=== PATIENT | male | born 1955 | race Caucasian/White ===

== ENCOUNTER 2016-07-09 09:23 | Inpatient (IN) | payer OTHER ==
[~2016-07-09] VITALS: Ht 182.9 cm; Wt 100.0 kg
[2016-07-09] VITALS (8 sets, daily range): BP systolic 110–165; BP diastolic 59–90; PULSE 55–58; RESP 16–20; TEMP 95.2–98.1; O2SAT 96–100
[~2016-07-09 09:23] MED LIST: ALPR0.5T3 PO; DEPA500T3 PO; OXYC15TA PO; QUET100 PO; QUET50TA PO; SUPETAB30 PO
[2016-07-09] MEDS ORDERED: GABA100C4 PO (09:47)
[2016-07-09] MEDS ORDERED: QUET1TAB8 PO ×2 (09:47→10:47)
[2016-07-09] MEDS ORDERED: ATEN25TA PO (09:47)
[2016-07-09] MEDS ORDERED: DEPA500T3 PO (09:47)
[2016-07-09] MEDS ORDERED: VENL37.5 PO (09:47)
[2016-07-09] MEDS ORDERED: PRAZ5CAP PO (09:47)
[2016-07-09] MEDS ORDERED: ONDANSETRON HCL 4 MG/2 ML VIAL IVP ONE (10:00)
[2016-07-09] MEDS ORDERED: MORPHINE SULFATE 8 MG/ML INJ IV PUSH ONE ×2 (10:00→12:15)
[2016-07-09] MEDS ORDERED: SODIUM CHLORIDE 0.9% FLUSH 5 ML FLUSH IVF PRN (10:00)
[2016-07-09 10:36] LABS: AUTOMATED NEUTROPHIL # 4.7 TH/MM3 (1.8-7.7); BASOPHIL % 0.4 % (0.0-2.0); EOSINOPHIL % 0.7 % (0.0-4.0); HEMATOCRIT 38.2 % (39.0-51.0); HEMO FLAGS DIFF FINAL; LYMPH % 24.6 % (9.0-44.0); LYMPHOCYTE # 1.7 TH/MM3 (1.0-4.8); MEAN CELL VOLUME 89.7 FL (80.0-100.0); MEAN CORPUSCULAR HEMOGLOBIN 31.1 PG (27.0-34.0); MEAN CORPUSCULAR HGB CONC 34.7 % (32.0-36.0); MONO % 6.3 % (0.0-8.0); PLATELET COUNT 139 TH/MM3 (150-450); RED BLOOD COUNT 4.25 MIL/MM3 (4.50-5.90); RED CELL DISTRIBUTION WIDTH 14.4 % (11.6-17.2); WHITE BLOOD COUNT 6.9 TH/MM3 (4.0-11.0)
[2016-07-09] MEDS ORDERED: ALPR.5 PO (10:46)
[2016-07-09] MEDS ORDERED: MULTTAB67 PO (10:47)
[2016-07-09 10:58] LABS: BICARBONATE 28.9 MEQ/L (21.0-32.0)
[2016-07-09 10:59] LABS: POTASSIUM 4.6 MEQ/L (3.5-5.1)
--- NOTE | 2016-07-09 11:36 | PD ---
HPI Chief Complaint: Back/ Neck Pain or Injury Time Seen by Provider: 09:30 Travel History International Travel<30 days: No Contact w/Intl Traveler<30days: No Traveled to known affect area: No History of Present Illness HPI Patient 61-year-old male presents with low back pain. Patient states that he was walking in his legs gave way last night he fell impacting the left side of his back and had low back pain. States the neighbor came over and helped him in the bed but this morning he was unable to get up. He then called 911. Denies any saddle anesthesia problems urinating. Denies any hematuria nausea or vomiting or diarrhea. PFSH Past Medical History Arthritis: Yes Asthma: No Autoimmune Disease: No Blood Disorders: No Anxiety: Yes Depression: Yes Heart Rhythm Problems: No Cancer: No Cardiovascular Problems: No High Cholesterol: No Chemotherapy: No Chest Pain: No Congestive Heart Failure: No COPD: Yes Diabetes: No Diminished Hearing: No Endocrine: No GERD: No Genitourinary: No Hepatitis: Yes (HEP C) Hiatal Hernia: No Hypertension: Yes Immune Disorder: No Kidney Stones: No Musculoskeletal: No Neurologic: No Psychiatric: Yes (ptsd) Reproductive: No Respiratory: No Immunizations Current: No Migraines: No Radiation Therapy: No Renal Failure: No Seizures: No Sickle Cell Disease: No Sleep Apnea: No Thyroid Disease: No Ulcer: No Tetanus Vaccination: Unknown Influenza Vaccination: Yes Past Surgical History Abdominal Surgery: No AICD: No Arteriovenous Shunt: No Cardiac Surgery: No Ear Surgery: No Endocrine Surgery: No Eye Surgery: No Genitourinary Surgery: No Gynecologic Surgery: No Insulin Pump: No Joint Replacement: No Oral Surgery: No Pacemaker: No Thoracic Surgery: No Other Surgery: Yes (left ankle) Social History Alcohol Use: No (quit 27 years ago ) Tobacco Use: Yes (1 AND 04/25 PPD) Substance Use: No Allergies-Medications (Allergen,Severity, Reaction): Coded Allergies: No Known Allergies (Verified , 07/09/16) Reported Meds & Prescriptions Reported Meds & Active Scripts Active Reported Quetiapine (Quetiapine Fumarate) 100 Mg Tab 100 Mg PO DAILY Multiple Vitamin 1 Tab 1 Tab PO DAILY Xanax (Alprazolam) 0.5 Mg Tab 0.5 Mg PO QID Prazosin (Prazosin HCl) 5 Mg Cap 5 Mg PO HS Effexor (Venlafaxine HCl) 37.5 Mg Tab 37.5 Mg PO DAILY Depakote ER (Divalproex Sodium) 500 Mg Deacon 1,500 Mg PO HS Atenolol 25 Mg Tab 25 Mg PO BID Gabapentin 100 Mg Cap 100 Mg PO TID Quetiapine (Quetiapine Fumarate) 100 Mg Tab 500 Mg PO HS Review of Systems Except as stated in HPI: all other systems reviewed are Neg Physical Exam Narrative GENERAL: Well-developed well-nourished, appears mildly uncomfortable. SKIN: Warm and dry. No bruising abrasions or lacerations seen on the left flank. HEAD: Atraumatic. Normocephalic. EYES: Pupils equal and round. No scleral icterus. No injection or drainage. ENT: No nasal bleeding or discharge. Mucous membranes pink and moist. NECK: Trachea midline. No JVD. CARDIOVASCULAR: Regular rate and rhythm. No murmur appreciated. RESPIRATORY: No accessory muscle use. Clear to auscultation. Breath sounds equal bilaterally. GASTROINTESTINAL: Abdomen soft, non-tender, nondistended. Hepatic and splenic margins not palpable. MUSCULOSKELETAL: No obvious deformities. No clubbing. No cyanosis. No edema. There is trivial midline tenderness over L1-L2 area. No SI tenderness, pelvis is stable. No C or T-spine tenderness. NEUROLOGICAL: Awake and alert. No obvious cranial nerve deficits. Motor grossly within normal limits. Normal speech. PSYCHIATRIC: Appropriate mood and affect; insight and judgment normal. Data Data Last Documented VS Vital Signs Date Time Temp Pulse Resp B/P Pulse Ox O2 Delivery O2 Flow Rate FiO2 07/09/16 11:30 58 16 136/90 98 Room Air 07/09/16 09:27 98.1 Orders Basic Metabolic Panel (Bmp) (07/09/16 09:56) Complete Blood Count With Diff (07/09/16 09:56) Ct Abd/Pel W Iv Contrast(Rout) (07/09/16 09:56) Iv Access Insert/Monitor (07/09/16 09:56) Ecg Monitoring (07/09/16 09:56) Oximetry (07/09/16 09:56) Ondansetron Inj (Zofran Inj) (07/09/16 10:00) Sodium Chloride 0.9% Flush (Ns Flush) (07/09/16 10:00) Morphine Inj (Morphine Inj) (07/09/16 10:00) Ct Lumb Spine W/O Contrast (07/09/16 ) Iohexol 350 Inj (Omnipaque 350 Inj) (07/09/16 11:44) Consult Neurosurgery (07/09/16 ) Morphine Inj (Morphine Inj) (07/09/16 12:15) Admit Order (Ed Use Only) (07/09/16 ) Labs Laboratory Tests Test 07/09/16 09:30 White Blood Count 6.9 TH/MM3 Red Blood Count 4.25 MIL/MM3 Hemoglobin 13.2 GM/DL Hematocrit 38.2 % Mean Corpuscular Volume 89.7 FL Mean Corpuscular Hemoglobin 31.1 PG Mean Corpuscular Hemoglobin 34.7 % Concent Red Cell Distribution Width 14.4 % Platelet Count 139 TH/MM3 Mean Platelet Volume 8.6 FL Neutrophils (%) (Auto) 68.0 % Lymphocytes (%) (Auto) 24.6 % Monocytes (%) (Auto) 6.3 % Eosinophils (%) (Auto) 0.7 % Basophils (%) (Auto) 0.4 % Neutrophils # (Auto) 4.7 TH/MM3 Lymphocytes # (Auto) 1.7 TH/MM3 Monocytes # (Auto) 0.4 TH/MM3 Eosinophils # (Auto) 0.0 TH/MM3 Basophils # (Auto) 0.0 TH/MM3 CBC Comment DIFF FINAL Differential Comment Sodium Level 140 MEQ/L Potassium Level 4.6 MEQ/L Chloride Level 102 MEQ/L Carbon Dioxide Level 28.9 MEQ/L Anion Gap 9 MEQ/L Blood Urea Nitrogen 18 MG/DL Creatinine 1.13 MG/DL Estimat Glomerular Filtration 66 ML/MIN Rate Random Glucose 84 MG/DL Calcium Level 8.5 MG/DL [facility] Medical Decision Making Medical Screen Exam Complete: Yes Emergency Medical Condition: Yes Differential Diagnosis Fracture, strain, sprain, kidney hematoma less likely. Narrative Course Last 24 hours Impressions Abdomen/Pelvis CT 07/09/16 0956 Signed Impressions: Service Date/Time: Saturday, July 09, 2016 11:15 - CONCLUSION: 1. Nondisplaced acute fracture along the superior endplate of L3. 2. 1.7 cm hepatic cyst. 3. 2.7 cm benign left renal cyst. Jarvis Landry MD Lumbar Spine MRI 07/09/16 0000 Signed Impressions: Service Date/Time: Saturday, July 09, 2016 21:31 - CONCLUSION: 1. Mild compression fracture at L3. No retropulsion of posterior fragments. 2. Minimal broad-based disc bulges at multiple levels as described above. 3. Old mild compression fracture at L1 Thomas Giles MD Lumbar Spine CT 07/09/16 0000 Signed Impressions: Service Date/Time: Saturday, July 09, 2016 11:15 - CONCLUSION: 1. Mild acute compression fracture involving the superior endplate of L3. 2. Old compression fracture superior endplate of L1 3. Mild primary degenerative changes with disc degeneration and disc space narrowing L4-5 and L5-S1 4. Bilateral facet arthritis at multiple levels. Jarvis Landry MD Patient discussed with Dr. Dickinson, for consideration of kyphoplasty in the morning. Patient is agreeable for admission. Diagnosis Primary Impression: Lumbar compression fracture Qualified Code: S32.000A - Lumbar compression fracture, closed, initial encounter Admitting Information Admitting Physician Requests: Admit Condition: Stable Reese Chung MD Jul 09, 2016 11:36
[2016-07-09] MEDS ORDERED: IOHEXOL 350 MG/ML 10 ML VIAL (for RAD DIAG) IV ONE (11:44)
--- NOTE | 2016-07-09 11:55 | RADRPT ---
EXAM DATE/TIME: 07/09/2016 11:15 [facility] COMPARISON: No previous studies available for comparison. INDICATIONS : Trauma; pain after fall. IV CONTRAST: 75 cc Omnipaque 350 (iohexol) IV ORAL CONTRAST: No oral contrast ingested. RADIATION DOSE: 15.97 CTDIvol (mGy) MEDICAL HISTORY : Chronic obstructive pulmonary disease. Hepatitis C. SURGICAL HISTORY : None. ENCOUNTER: Initial ACUITY: 1 day PAIN SCALE: 7/10 LOCATION: Bilateral abdomen. TECHNIQUE: Volumetric scanning of the abdomen and pelvis was performed. Using automated exposure control and ad justment of the mA and/or kV according to patient size, radiation dose was kept as low as reasonably achievable to obtain optimal diagnostic quality images. FINDINGS: LOWER LUNGS: Mild bibasilar atelectasis. LIVER: Homogeneous density. There is a 1.7 cm hepatic cyst in the right lobe by the dome of the diaphragm. There is no dilation of the biliary tree. No calcified gallstones. SPLEEN: Normal size without lesion. PANCREAS: Within normal limits. KIDNEYS: Normal in size and shape. There is no mass, stone or hydronephrosis. 2.7 cm benign left renal cyst a long the upper pole. ADRENAL GLANDS: Within normal limits. VASCULAR: There is no aortic aneurysm. BOWEL/MESENTERY: The stomach, small bowel, and colon demonstrate no acute abnormality. There is no free intraperitone al air or fluid. No inflammatory changes. Stool colon. ABDOMINAL WALL: Within normal limits. RETROPERITONEUM: There is no lymphadenopathy. BLADDER: No wall thickening or mass. REPRODUCTIVE: Within normal limits. INGUINAL: There is no lymphadenopathy or hernia. MUSCULOSKELETAL: There is a nondisplaced acute fracture along the superior endplate of L3. Mild primary degenerative c hanges. Old compression along the superior plate of L1. CONCLUSION: 1. Nondisplaced acute fracture along the superior endplate of L3. 2. 1.7 cm hepatic cyst. 3. 2.7 cm benign left renal cyst. Jarvis Landry MD on July 09, 2016 at 11:43 Board Certified Radiologist. This report was verified electronically.
--- NOTE | 2016-07-09 12:03 | RADRPT ---
EXAM DATE/TIME: 07/09/2016 11:15 [facility] COMPARISON: No previous studies available for comparison. INDICATIONS : Back pain RADIATION DOSE: 15.97 CTDIvol (mGy) MEDICAL HISTORY : COPD SURGICAL HISTORY : none ENCOUNTER: Initial ACUITY: One day PAIN SCALE: 7/10 LOCATION: Low Back/lumbar TECHNIQUE: Volumetric scanning of the lumbar spine was performed. Multiplanar reconstructions in the sagittal, coronal and oblique axial planes were performed. Using automated exposure control and adjustment of the mA and/or kV according to patient size, radiation dose was kept as low as reasonably achievable t o obtain optimal diagnostic quality images. FINDINGS: VERTEBRAE: There is an old compression fracture injury along the superior plate of L1. There is an acute mildly depressed compression fracture along the superior endplate of L3. There are mild degenerative changes of the lumbar spine. There is disc space narrowing L4-5 and L5-S1. ALIGNMENT: No evidence of subluxation. T12-L1: The thecal sac has a normal diameter. No evidence of disc bulge or protrusion. The neural foramina are patent bilaterally. L1-L2: The thecal sac has a normal diameter. No evidence of disc bulge or protrusion. The neural foramina are patent bilaterally. L2-L3: The thecal sac has a normal diameter. No evidence of disc bulge or protrusion. The neural foramina are patent bilaterally. L3-L4: Mild diffuse broad-based bulging. The neural foramina are patent bilaterally. Bilateral facet arthrit is. L4-L5: Mild broad-based left lateral bulging with some narrowing of the left neural foramina. There is bilat eral facet arthritis. L5-S1: Mild broad-based bulging. Bilateral facet arthritis. The neural foramina are patent. CONCLUSION: 1. Mild acute compression fracture involving the superior endplate of L3. 2. Old compression fracture superior endplate of L1 3. Mild primary degenerative changes with disc degeneration and disc space narrowing L4-5 and L5-S1 4. Bilateral facet arthritis at multiple levels. Jarvis Landry MD on July 09, 2016 at 11:56 Board Certified Radiologist. This report was verified electronically.
--- NOTE | 2016-07-09 13:21 | HHI.HP ---
[facility] Admission Diagnosis L3 Compression fracture. Diagnoses: Chief Complaint: back pain, unable to walk. Travel History International Travel<30 Days: No Contact w/Intl Traveler <30 Da: No Traveled to Known Affected Are: No History of Present Illness 61-year-old male with a medical history significant for COPD, hypertension, PTSD , depression, anxiety, and chronic low back and left ankle pain who presented to the emergency room due to inability to ambulate, back pain after he sustained a fall last night. Patient reports he took all of his medications last night including Effexor, Depakote, Seroquel, gabapentin and Xanax. Shortly after went to make a peanut butter sandwich and he had some leg weakness and fell backward onto the wall heating his back. He was unable to get off from the floor. Family helped him to bed and he slept until this morning when he was unable to get out of the bed secondary to significant pain. He denied any loss of consciousness or head trauma. Workup in the emergency room revealed an L3 compression fractures with multilevel degenerative changes. Patient reports he was taken off oxycodone and morphine by the [facility] and was given gabapentin earlier this month. Neurosurgery has been consulted from the emergency department. Review of Systems Constitutional: DENIES: Weight gain, Chills Cardiovascular: DENIES: Chest pain, Palpitations, Syncope Musculoskeletal: COMPLAINS OF: Stiffness, Back pain Except as stated in HPI: all other systems reviewed are Neg Past Family Social History Past Medical History Hypertension COPD PTSD Depression anxiety Chronic low back pain Past Surgical History Left ankle ORIF Cataract surgery Reported Medications Reported Meds & Active Scripts Active Reported Quetiapine (Quetiapine Fumarate) 100 Mg Tab 100 Mg PO DAILY Multiple Vitamin 1 Tab 1 Tab PO DAILY Xanax (Alprazolam) 0.5 Mg Tab 0.5 Mg PO QID Prazosin (Prazosin HCl) 5 Mg Cap 5 Mg PO HS Effexor (Venlafaxine HCl) 37.5 Mg Tab 37.5 Mg PO DAILY Depakote ER (Divalproex Sodium) 500 Mg Deacon 1,500 Mg PO HS Atenolol 25 Mg Tab 25 Mg PO BID Gabapentin 100 Mg Cap 100 Mg PO TID Quetiapine (Quetiapine Fumarate) 100 Mg Tab 500 Mg PO HS Allergies: Coded Allergies: No Known Allergies (Verified , 07/09/16) Family History Father with history of heart disease and CABG Mother from complications of bladder cancer Social History Patient is a lifelong smoker. Smoked as much as 3 packs per day, down to 1 pack per day. He denies current alcohol use. States he hasn't drank for 20+ more years. He denies illicit drug use. Physical Exam Vital Signs Vital Signs Date Time Temp Pulse Resp B/P Pulse Ox O2 Delivery O2 Flow Rate FiO2 07/09/16 10:29 58 16 115/85 96 Room Air 07/09/16 09:27 98.1 58 18 137/90 99 Room Air 07/09/16 09:27 98.1 58 18 137/90 99 Physical Exam GENERAL: Obese male SKIN: No rashes, ecchymoses or lesions. Cool and dry. HEAD: Atraumatic. Normocephalic. No temporal or scalp tenderness. EYES: Pupils equal round and reactive. No injection or drainage. ENT: Nose without drainage. Uvula midline. Airway patent. NECK: Trachea midline. No JVD or lymphadenopathy. Supple, nontender, no meningeal signs. CARDIOVASCULAR: Regular rate and rhythm without murmurs, gallops, or rubs. RESPIRATORY: Clear to auscultation. Breath sounds equal bilaterally. No wheezes , rales, or rhonchi. GASTROINTESTINAL: Abdomen soft, non-tender, nondistended. No guarding. MUSCULOSKELETAL: furnace door tender to palpation all over lumbar area. Pos straight leg on the left. Extremities without edema. No calf tenderness. Negative Homans sign bilaterally. NEUROLOGICAL: Awake and alert. Cranial nerves II through XII intact. Generally weak. No focal neuro deficit. Normal speech. Laboratory Laboratory Tests Test 07/09/16 09:30 White Blood Count 6.9 Red Blood Count 4.25 Hemoglobin 13.2 Hematocrit 38.2 Mean Corpuscular Volume 89.7 Mean Corpuscular Hemoglobin 31.1 Mean Corpuscular Hemoglobin 34.7 Concent Red Cell Distribution Width 14.4 Platelet Count 139 Mean Platelet Volume 8.6 Neutrophils (%) (Auto) 68.0 Lymphocytes (%) (Auto) 24.6 Monocytes (%) (Auto) 6.3 Eosinophils (%) (Auto) 0.7 Basophils (%) (Auto) 0.4 Neutrophils # (Auto) 4.7 Lymphocytes # (Auto) 1.7 Monocytes # (Auto) 0.4 Eosinophils # (Auto) 0.0 Basophils # (Auto) 0.0 CBC Comment DIFF FINAL Differential Comment Sodium Level 140 Potassium Level 4.6 Chloride Level 102 Carbon Dioxide Level 28.9 Anion Gap 9 Blood Urea Nitrogen 18 Creatinine 1.13 Estimat Glomerular Filtration 66 Rate Random Glucose 84 Calcium Level 8.5 Result Diagram: 07/09/1630 07/09/1630 Imaging Last Impressions Abdomen/Pelvis CT 07/09/16 0956 Signed Impressions: Service Date/Time: Saturday, July 09, 2016 11:15 - CONCLUSION: 1. Nondisplaced acute fracture along the superior endplate of L3. 2. 1.7 cm hepatic cyst. 3. 2.7 cm benign left renal cyst. Jarvis Landry MD Lumbar Spine CT 07/09/16 0000 Signed Impressions: Service Date/Time: Saturday, July 09, 2016 11:15 - CONCLUSION: 1. Mild acute compression fracture involving the superior endplate of L3. 2. Old compression fracture superior endplate of L1 3. Mild primary degenerative changes with disc degeneration and disc space narrowing L4-5 and L5-S1 4. Bilateral facet arthritis at multiple levels. Jarvis Landry MD Assessment and Plan Problem List: (1) Lumbar compression fracture ICD Code: S32.000A Status: Acute (2) Polypharmacy ICD Code: Z79.899 Status: Acute (3) Chronic low back pain ICD Code: M54.5 Status: Chronic (4) PTSD (post-traumatic stress disorder) ICD Code: F43.10 Status: Chronic (5) Status post fall ICD Code: Z91.81 Status: Acute (6) Anxiety ICD Code: F41.9 Status: Chronic (7) Depression ICD Code: F32.9 Status: Chronic Assessment and Plan 61-year-old male on multiple sedating medications for PTSD, anxiety, and depression admitted with lumbar compression fracture after a fall. Lumbar compression fracture: CT shows mild acute compression fracture at L3. There is an old fracture at L1 and multilevel degenerative changes. - CT surgery has been consulted. - Pain control. - PT when able Fall likely secondary to polypharmacy: The patient is on high-dose of Seroquel, Effexor, Depakote, gabapentin and Xanax. All of which he took at the same time last night which likely caused his fall. Based on review of the medical records , it appears that he has had problem with polypharmacy in the past. [facility] - Will attempt to wean some of this sedating medications. We'll start with decreasing Seroquel to 100 mg twice a day. Hold Xanax. Advise further titration outpatient. PTSD/depression/anxiety: -Continue patient's Depakote, and decreased Seroquel to 100 mg twice a day -Outpatient f/up with [facility] psychiatrist History of hypertension: Currently normotensive. - He is borderline bradycardic. Will hold atenolol. GI prophylaxis: Stool softener PRN constipation. DVT PPx: SCDs. May need surgery. Discussed Condition With ED physician, Dr. Chung Physician Certification 2 Midnight Certification Type: Admission for Inpatient Services Order for Inpatient Services The services are ordered in accordance with Medicare regulations or non- Medicare payer requirements, as applicable. In the case of services not specified as inpatient-only, they are appropriately provided as inpatient services in accordance with the 2-midnight benchmark. Estimated LOS (days): 3 days is the estimated time the patient will need to remain in the hospital, assuming treatment plan goals are met and no additional complications. Post-Hospital Plan: Not yet determined Edward Rice MD Jul 09, 2016 13:21
[2016-07-09] MEDS ORDERED: NALOXONE HCL 0.4 MG/ML AMP IV PRN (13:30)
[2016-07-09] MEDS ORDERED: SODIUM CHLORIDE 0.9% FLUSH 5 ML FLUSH FLUSH PRN (13:30)
[2016-07-09] MEDS ORDERED: ACETAMINOPHEN 325 MG TAB PO PRN (13:30)
[2016-07-09] MEDS ORDERED: ONDANSETRON HCL 4 MG/2 ML VIAL IVP PRN (13:30)
--- NOTE | 2016-07-09 15:51 | PD.CONS ---
[facility] Service neurosurg Consult Requested By Veronika Chugn Reason for Consult Lumbar fracture Primary Care Physician [facility] History of Present Illness This is a 61-year-old male with history of COPD, hypertension, PTSD, depression , anxiety, and chronic low back and left ankle pain, who presented to the emergency room with inability to ambulate, very severe back pain after a fall last night. Apparently he took all of his medications last night, including Effexor, Depakote, Seroquel, gabapentin and Xanax. Shortly after he attempted to make a peanut butter sandwich and developed leg weakness when his leg gave out, and fell backward onto the wall strickinghis back. He was unable to get off from the floor. Immediate onset of severe back pain. His pain is located in the medial lumbar region. His family helped him to get into bed and he slept until this morning when he was unable to get out of the due to the severe back pain. He denies loss of consciou Physical Exam Vital Signs Vital Signs Date Time Temp Pulse Resp B/P Pulse Ox O2 Delivery O2 Flow Rate FiO2 07/09/16 10:29 58 16 115/85 96 Room Air 07/09/16 09:27 98.1 58 18 137/90 99 Room Air 07/09/16 09:27 98.1 58 18 137/90 99 Physical Exam GENERAL: Obese male SKIN: No rashes, ecchymoses or lesions. Cool and dry. HEAD: Atraumatic. Normocephalic. No temporal or scalp tenderness. EYES: Pupils equal round and reactive. No injection or drainage. ENT: Nose without drainage. Uvula midline. Airway patent. NECK: Trachea midline. No JVD or lymphadenopathy. Supple, nontender, no meningeal signs. CARDIOVASCULAR: Regular rate and rhythm without murmurs, gallops, or rubs. RESPIRATORY: Clear to auscultation. Breath sounds equal bilaterally. No wheezes , rales, or rhonchi. GASTROINTESTINAL: Abdomen soft, non-tender, nondistended. No guarding. MUSCULOSKELETAL: fiber machine tender to palpation all over lumbar area. Pos straight leg on the left. Extremities without edema. No calf tenderness. Negative Homans sign bilaterally. NEUROLOGICAL: Awake and alert. Cranial nerves II through XII intact. Generally weak. No focal neuro deficit. Normal speech. Laboratory Laboratory Tests Test 07/09/16 09:30 White Blood Count 6.9 Red Blood Count 4.25 Hemoglobin 13.2 Hematocrit 38.2 Mean Corpuscular Volume 89.7 Mean Corpuscular Hemoglobin 31.1 Mean Corpuscular Hemoglobin 34.7 Concent Red Cell Distribution Width 14.4 Platelet Count 139 Mean Platelet Volume 8.6 Neutrophils (%) (Auto) 68.0 Lymphocytes (%) (Auto) 24.6 Monocytes (%) (Auto) 6.3 Eosinophils (%) (Auto) 0.7 Basophils (%) (Auto) 0.4 Neutrophils # (Auto) 4.7 Lymphocytes # (Auto) 1.7 Monocytes # (Auto) 0.4 Eosinophils # (Auto) 0.0 Basophils # (Auto) 0.0 CBC Comment DIFF FINAL Differential Comment Sodium Level 140 Potassium Level 4.6 Chloride Level 102 Carbon Dioxide Level 28.9 Anion Gap 9 Blood Urea Nitrogen 18 Creatinine 1.13 Estimat Glomerular Filtration 66 Rate Random Glucose 84 Calcium Level 8.5 Result Diagram: 07/09/16 0930 07/09/16 0930 Imaging Last Impressions Abdomen/Pelvis CT 07/09/16 0956 Signed Impressions: Service Date/Time: Saturday, July 09, 2016 11:15 - CONCLUSION: 1. Nondisplaced acute fracture along the superior endplate of L3. 2. 1.7 cm hepatic cyst. 3. 2.7 cm benign left renal cyst. Jarvis Landry MD Lumbar Spine CT 07/09/16 0000 Signed Impressions: Service Date/Time: Saturday, July 09, 2016 11:15 - CONCLUSION: 1. Mild acute compression fracture involving the superior endplate of L3. 2. Old compression fracture superior endplate of L1 3. Mild primary degenerative changes with disc degeneration and disc space narrowing L4-5 and L5-S1 4. Bilateral facet arthritis at multiple levels. Jarvis Landry MD Assessment and Plan Problem List: (1) Lumbar compression fracture ICD Code: S32.000A Status: Acute (2) Polypharmacy ICD Code: Z79.899 Status: Acute (3) Chronic low back pain ICD Code: M54.5 Status: Chronic (4) PTSD (post-traumatic stress disorder) ICD Code: F43.10 Status: Chronic (5) Status post fall ICD Code: Z91.81 Status: Acute (6) Anxiety ICD Code: F41.9 Status: Chronic (7) Depression ICD Code: F32.9 Status: Chronic Assessment and Plan 61-year-old male on multiple sedating medications for PTSD, anxiety, and depression admitted with lumbar compression fracture after a fall. Lumbar compression fracture: CT shows mild acute compression fracture at L3. There is an old fracture at L1 and multilevel degenerative changes. - CT surgery has been consulted. - Pain control. - PT when able Fall likely secondary to polypharmacy: The patient is on high-dose of Seroquel, Effexor, Depakote, gabapentin and Xanax. All of which he took at the same time last night which likely caused his fall. Based on review of the medical records , it appears that he has had problem with polypharmacy in the past. [facility] - Will attempt to wean some of this sedating medications. We'll start with decreasing Seroquel to 100 mg twice a day. Hold Xanax. Advise further titration outpatient. PTSD/depression/anxiety: -Continue patient's Depakote, and decreased Seroquel to 100 mg twice a day -Outpatient f/up with [place] psychiatrist History of hypertension: Currently normotensive. - He is borderline bradycardic. Will hold atenolol. GI prophylaxis: Stool softener PRN constipation. DVT PPx: SCDs. May need surgery. Past Family Social History Allergies: Coded Allergies: No Known Allergies (Verified , 07/09/16) Past Medical History Hypertension COPD PTSD Depression anxiety Chronic low back pain Past Surgical History Left ankle ORIF Cataract surgery Reported Medications Quetiapine (Quetiapine Fumarate) 100 Mg Tab 100 Mg PO DAILY Multiple Vitamin 1 Tab 1 Tab PO DAILY Xanax (Alprazolam) 0.5 Mg Tab 0.5 Mg PO QID Prazosin (Prazosin HCl) 5 Mg Cap 5 Mg PO HS Effexor (Venlafaxine HCl) 37.5 Mg Tab 37.5 Mg PO DAILY Depakote ER (Divalproex Sodium) 500 Mg Deacon 1,500 Mg PO HS Atenolol 25 Mg Tab 25 Mg PO BID Gabapentin 100 Mg Cap 100 Mg PO TID Quetiapine (Quetiapine Fumarate) 100 Mg Tab 500 Mg PO HS Active Ordered Medications Current Medications Ondansetron HCl (Zofran Inj) 4 mg ONCE ONCE IVP Last administered on 10:26; Start 07/09/16 at 10:00; Stop 07/09/16 at 10:01; Status DC IV Flush (NS Flush) 2 ml UNSCH PRN IVF FLUSH AFTER USING IV ACCESS Last administered on 07/09/16 10:27; Start 07/09/16 at 10:00 Morphine Sulfate (Morphine Inj) 5 mg ONCE ONCE IV PUSH Last administered on 10:27; Start 07/09/16 at 10:00; Stop 07/09/16 at 10:01; Status DC Iohexol (Omnipaque 350 Inj) 75 ml STK-MED ONCE IV ; Start 07/09/16 at 11:44; Stop 07/09/16 at 11:45; Status DC Morphine Sulfate (Morphine Inj) 5 mg ONCE ONCE IV PUSH Last administered on 13:09; Start 07/09/16 at 12:15; Stop 07/09/16 at 12:19; Status DC Alprazolam (Xanax) 0.5 mg QID PO ; Start 07/09/16 at 18:00; Stop 07/09/16 at 18: 00; Status DC Atenolol (Tenormin) 25 mg BID PO ; Start 07/09/16 at 21:00; Stop 07/09/16 at 21: 00; Status DC Divalproex Sodium (Depakote Er) 1,500 mg HS PO Last administered on 07/09/16 20:54; Start 07/09/16 at 21:00 Gabapentin (Neurontin) 100 mg TID PO Last administered on 07/10/16 09:28; Start 07/09/16 at 18:00 Multivitamins (Theragran) 1 tab DAILY PO Last administered on 07/10/16 09:28; Start 07/10/16 at 09:00 Prazosin HCl (Minipress) 5 mg HS PO Last administered on 07/09/16 23:05; Start 07/09/16 at 21:00 Quetiapine Fumarate (SEROquel) 100 mg DAILY PO ; Start 07/10/16 at 09:00; Stop 07/10/16 at 09:00; Status DC Venlafaxine HCl (Effexor Xr) 37.5 mg DAILY PO Last administered on 07/10/16 09 :28; Start 07/10/16 at 09:00 Quetiapine Fumarate (SEROquel) 100 mg BID PO Last administered on 07/10/16 09: 28; Start 07/10/16 at 09:00 IV Flush (NS Flush) 2 ml UNSCH PRN FLUSH FLUSH AFTER USING IV ACCESS; Start at 13:30 IV Flush (NS Flush) 2 ml BID FLUSH Last administered on 07/10/16 09:30; Start 07/09/16 at 21:00 Acetaminophen (Tylenol) 650 mg Q4H PRN PO TEMP > 100.4; Start 07/09/16 at 13:30 Ondansetron HCl (Zofran Inj) 4 mg Q6H PRN IVP NAUSEA OR VOMITING; Start at 13:30 Docusate Sodium (Colace) 100 mg Q12HR PO Last administered on 07/10/16 09:28; Start 07/09/16 at 13:30 Naloxone HCl (Narcan Inj) 0.4 mg UNSCH PRN IV SEE LABEL COMMENTS; Start at 13:30 Oxycodone/ Acetaminophen (Percocet 7.5-325 Mg) 1 tab Q6H PRN PO PAIN GREATER THAN 5 Last administered on 07/10/16 06:20; Start 07/09/16 at 14:30 Influenza Virus Vaccine (Flu (Quadrivalent) Vaccine Inj) 0.5 ml ONCE ONCE IM Last administered on 07/10/16 09:30; Start 07/10/16 at 10:00; Stop 07/10/16 at 10:01 Morphine Sulfate (Morphine Inj) 2 mg ONCE ONCE IV PUSH Last administered on 23:05; Start 07/09/16 at 22:45; Stop 07/09/16 at 22:53; Status DC Family History Father with history of heart disease and CABG Mother from complications of bladder cancer Social History He is a lifelong smoker. Smoked as much as 3 packs per day, down to 1 pack per day. He denies current alcohol use. He denies illicit drug use. Physical Exam Vital Signs Vital Signs Date Time Temp Pulse Resp B/P Pulse Ox O2 Delivery O2 Flow Rate FiO2 07/09/16 14:30 58 18 110/65 100 Room Air 07/09/16 13:30 58 18 137/80 100 Room Air 07/09/16 12:30 56 17 165/59 97 Room Air 07/09/16 11:30 58 16 136/90 98 Room Air 07/09/16 10:29 58 16 115/85 96 Room Air 07/09/16 09:27 98.1 58 18 137/90 99 Room Air 07/09/16 09:27 98.1 58 18 137/90 99 Physical Exam The patient is alert, awake and oriented to time, place and person. Speech is fluent. Higher cognitive functions are normal. Cranial nerve examination demonstrates the pupils to be equal, round, and reactive to light. Extra-ocular movements are intact. Facial motor and sensory function are normal and symmetrical. Gross hearing is intact, bilaterally. The uvula is midline and elevates symmetrically with the soft palate. Sternocleidomastoid and trapezius muscles have normal and symmetrical strength. Other cranial nerves are intact. Neck is soft and supple. Cervical spine has a full range of motion in anterior flexion, extension, lateral bending, and rotation without pain. There is no tenderness to palpation to the spinous processes or paraspinal muscles. Muscle testing reveals normal bulk and tone overall without rigidity, spasticity , fasciculations, or atrophy. Muscle strength is 5/5 in all muscle groups of both upper extremities including deltoid, biceps, triceps, brachioradialis, wrist extension and tassel maker. In the lower extremities, strength is 5/5 in both iliopsoas, quadriceps, hamstrings, plantar flexion, dorsiflexion, and extensor hallicus longus. Sensory examination is intact to light touch and sharp/dull discrimination in both the upper and lower extremities, symmetrically. Deep tendon reflexes are 2+ and symmetrical in the biceps, triceps, and brachioradialis, bilaterally, in the upper extremities. In the lower extremities , the patellar and Achilles are 2+, bilaterally. There is a bilateral plantar flexion response. Hoffmanns sign is negative. There is no clonus or other abnormal reflexes noted. Cerebellar examination is intact to [id number] test, rapid rhythmic alternating motion. There is no dysmetria, dysdiadochokinesia, truncal ataxia, or tremor. Laboratory Laboratory Tests Test 07/09/16 09:30 White Blood Count 6.9 Red Blood Count 4.25 Hemoglobin 13.2 Hematocrit 38.2 Mean Corpuscular Volume 89.7 Mean Corpuscular Hemoglobin 31.1 Mean Corpuscular Hemoglobin 34.7 Concent Red Cell Distribution Width 14.4 Platelet Count 139 Mean Platelet Volume 8.6 Neutrophils (%) (Auto) 68.0 Lymphocytes (%) (Auto) 24.6 Monocytes (%) (Auto) 6.3 Eosinophils (%) (Auto) 0.7 Basophils (%) (Auto) 0.4 Neutrophils # (Auto) 4.7 Lymphocytes # (Auto) 1.7 Monocytes # (Auto) 0.4 Eosinophils # (Auto) 0.0 Basophils # (Auto) 0.0 CBC Comment DIFF FINAL Differential Comment Sodium Level 140 Potassium Level 4.6 Chloride Level 102 Carbon Dioxide Level 28.9 Anion Gap 9 Blood Urea Nitrogen 18 Creatinine 1.13 Estimat Glomerular Filtration 66 Rate Random Glucose 84 Calcium Level 8.5 Result Diagram: 07/09/16 0930 07/09/16 0930 Imaging Last Impressions Abdomen/Pelvis CT 07/09/16 0956 Signed Impressions: Service Date/Time: Saturday, July 09, 2016 11:15 - CONCLUSION: 1. Nondisplaced acute fracture along the superior endplate of L3. 2. 1.7 cm hepatic cyst. 3. 2.7 cm benign left renal cyst. Jarvis Landry MD Lumbar Spine CT 07/09/16 0000 Signed Impressions: Service Date/Time: Saturday, July 09, 2016 11:15 - CONCLUSION: 1. Mild acute compression fracture involving the superior endplate of L3. 2. Old compression fracture superior endplate of L1 3. Mild primary degenerative changes with disc degeneration and disc space narrowing L4-5 and L5-S1 4. Bilateral facet arthritis at multiple levels. Jarvis Landry MD Attending Statement I have reviewed his clinical and further studies. Start neuro checks in a serial fashion. He is in severe pain. He may benefit by a kyphoplasty. MRI ordered for further eval. We have discussed the details including the step-by- step details of the surgical procedure, its indications, alternatives, risks, and potential complications. Risks and potential complications include, but are not limited to, infection, blood loss, CSF leak, partial or complete loss of sight in one or both eyes, paresis, paralysis, permanent pain or difficulty swallowing, loss of bowel or bladder function, complications from anesthesia, blood clot, stroke, myocardial infarction, or even . Respiratory. pulmonary toilette, nasotracheal suction, and breathing treatments with nebulizers. PT and OT eval Nutrition. NPO Renal. monitor closely urine output, BUN and creatinine Endocrine. Monitor serial Acu checks and SSI for tight control ID monitor for signs of infection Protonix for stress ulcer prophylaxis Edwin hose and SCD's for DVT prophylaxis Mayito Dickinson MD Jul 09, 2016 15:50
[2016-07-09] MEDS: oxyCODONE/ACETAMINOPHEN 7.5 MG/325 MG TAB PO PRN (17:10)
[2016-07-09] MEDS: GABAPENTIN 100 MG CAP PO SCH (17:10)
[2016-07-09] MEDS ORDERED: ALPRAZolam 0.5 MG TAB PO SCH (18:00)
[2016-07-09] MEDS: DIVALPROEX SODIUM E.R. 500 MG TAB PO SCH (20:54)
[2016-07-09] MEDS: DOCUSATE SODIUM 100 MG CAP PO SCH (20:54)
[2016-07-09] MEDS: SODIUM CHLORIDE 0.9% FLUSH 5 ML FLUSH FLUSH SCH (20:55)
[2016-07-09] MEDS ORDERED: ATENOLOL 25 MG TAB PO SCH (21:00)
--- NOTE | 2016-07-09 22:01 | RADRPT ---
EXAM DATE/TIME: 07/09/2016 21:31 [place] COMPARISON: No previous studies available for comparison. INDICATIONS : Pain. Compression fracture. MEDICAL HISTORY : Hypertension. SURGICAL HISTORY : Orthopedic. ENCOUNTER: Subsequent ACUITY: 3 day PAIN SCORE: 4/10 LOCATION: Paraspinal TECHNIQUE: Multiplanar multisequence MRI of the lumbar spine was performed without contrast. FINDINGS: The most caudal appearing lumbar vertebra is numbered as L5. VERTEBRAE: Compression fracture through L3 vertebral body. No retropulsion of posterior fragments. Minimal loss of height. Old mild compression fracture superior endplate L1. Normal alignment. CONUS: Normal level and configuration. T12-L1: The thecal sac has a normal diameter. No evidence of disc bulge or protrusion. The neural foramina are patent bilaterally. L1-L2: The thecal sac has a normal diameter. No evidence of disc bulge or protrusion. The neural foramina are patent bilaterally. L2-L3: Minimal broad-based disc bulge abuts ventral thecal sac without canal stenosis. The neural foramina are patent bilaterally. L3-L4: Minimal broad-based disc bulge abuts ventral thecal sac without canal stenosis. The neural foramina are patent bilaterally. L4-L5: Minimal broad-based disc bulge abuts ventral thecal sac without canal stenosis. The neural foramina are patent bilaterally. Mild facet arthropathy. L5-S1: The thecal sac has a normal diameter. No evidence of disc bulge or protrusion. The neural foramina are patent bilaterally. CONCLUSION: 1. Mild compression fracture at L3. No retropulsion of posterior fragments. 2. Minimal broad-based disc bulges at multiple levels as described above. 3. Old mild compression fracture at L1 Thomas Giles MD on July 09, 2016 at 21:57 Board Certified Radiologist. This report was verified electronically.
[2016-07-09] MEDS ORDERED: MORPHINE SULFATE 4 MG/ML INJ IV PUSH ONE (22:45)
[2016-07-09] MEDS: PRAZOSIN HCL 5 MG CAP PO SCH (23:05)
[2016-07-10] VITALS: BP 132/73; PULSE 61; RESP 20; TEMP 96.9; O2SAT 98
[2016-07-10] MEDS: oxyCODONE/ACETAMINOPHEN 7.5 MG/325 MG TAB PO PRN ×2 (00:10→06:20)
[2016-07-10 04:00] VITALS: BP 104/63; PULSE 57; RESP 20; TEMP 96.8; O2SAT 94
[2016-07-10 08:16] VITALS: BP 110/66; PULSE 59; RESP 20; TEMP 96.6; O2SAT 97
[2016-07-10] MEDS ORDERED: QUEtiapine FUMARATE 100 MG TAB PO SCH (09:00)
[2016-07-10 09:26] LABS: AUTOMATED NEUTROPHIL # 2.4 TH/MM3 (1.8-7.7); BASOPHIL % 0.6 % (0.0-2.0); EOSINOPHIL # 0.1 TH/MM3 (0-0.4); EOSINOPHIL % 2.9 % (0.0-4.0); HEMATOCRIT 35.4 % (39.0-51.0); HEMO FLAGS DIFF FINAL; LYMPHOCYTE # 1.7 TH/MM3 (1.0-4.8); MEAN CELL VOLUME 90.2 FL (80.0-100.0); MEAN CORPUSCULAR HEMOGLOBIN 30.6 PG (27.0-34.0); MEAN CORPUSCULAR HGB CONC 33.9 % (32.0-36.0); MONO % 5.7 % (0.0-8.0); NEUT % 52.8 % (16.0-70.0); PLATELET COUNT 122 TH/MM3 (150-450); RED BLOOD COUNT 3.93 MIL/MM3 (4.50-5.90); RED CELL DISTRIBUTION WIDTH 14.2 % (11.6-17.2); WHITE BLOOD COUNT 4.5 TH/MM3 (4.0-11.0)
[2016-07-10] MEDS: VENLAFAXINE HCL XR 37.5 MG CAP PO SCH (09:28)
[2016-07-10] MEDS: QUEtiapine FUMARATE 100 MG TAB PO SCH ×2 (09:28→21:53)
[2016-07-10] MEDS: MULTIVITAMIN TAB PO SCH (09:28)
[2016-07-10] MEDS: DOCUSATE SODIUM 100 MG CAP PO SCH ×2 (09:28→21:52)
[2016-07-10] MEDS: GABAPENTIN 100 MG CAP PO SCH ×3 (09:28→17:33)
[2016-07-10] MEDS: SODIUM CHLORIDE 0.9% FLUSH 5 ML FLUSH FLUSH SCH ×2 (09:30→21:53)
--- NOTE | 2016-07-10 09:41 | HHI.NSPN ---
Labs, Micro, & Vital Signs Results Date Time Temp Pulse Resp B/P Pulse Ox O2 Delivery O2 Flow Rate FiO2 07/10/16 08:16 96.6 59 20 110/66 97 07/10/16 04:00 96.8 57 20 104/63 94 07/10/16 00:00 96.9 61 20 132/73 98 07/09/16 20:00 95.2 55 20 126/76 97 07/09/16 16:29 97.0 58 20 110/67 99 07/09/16 14:30 58 18 110/65 100 Room Air 07/09/16 13:30 58 18 137/80 100 Room Air 07/09/16 12:30 56 17 165/59 97 Room Air 07/09/16 11:30 58 16 136/90 98 Room Air 07/09/16 10:29 58 16 115/85 96 Room Air 07/10/16 07:00 Intake Total 600 ml Output Total 600 ml Balance 0 ml Constitutional Vital Signs Date Time Temp Pulse Resp B/P Pulse Ox O2 Delivery O2 Flow Rate FiO2 07/10/16 08:16 96.6 59 20 110/66 97 07/10/16 04:00 96.8 57 20 104/63 94 07/10/16 00:00 96.9 61 20 132/73 98 07/09/16 20:00 95.2 55 20 126/76 97 07/09/16 16:29 97.0 58 20 110/67 99 07/09/16 14:30 58 18 110/65 100 Room Air 07/09/16 13:30 58 18 137/80 100 Room Air 07/09/16 12:30 56 17 165/59 97 Room Air 07/09/16 11:30 58 16 136/90 98 Room Air 07/09/16 10:29 58 16 115/85 96 Room Air 07/10/16 07:00 Intake Total 600 ml Output Total 600 ml Balance 0 ml Mayito Dickinson MD Jul 10, 2016 09:41
--- NOTE | 2016-07-10 09:52 | HHI.PR ---
Subjective Remarks Patient seen in follow up for lumbar compression fracture. Pain is uncontrolled. He reports that he has not been able to get out of the bed. He used to be on high dose of Narcotics for chronic back pain. Objective Vitals Vital Signs Date Time Temp Pulse Resp B/P Pulse Ox O2 Delivery O2 Flow Rate FiO2 07/10/16 08:16 96.6 59 20 110/66 97 07/10/16 04:00 96.8 57 20 104/63 94 07/10/16 00:00 96.9 61 20 132/73 98 07/09/16 20:00 95.2 55 20 126/76 97 07/09/16 16:29 97.0 58 20 110/67 99 07/09/16 14:30 58 18 110/65 100 Room Air 07/09/16 13:30 58 18 137/80 100 Room Air 07/09/16 12:30 56 17 165/59 97 Room Air 07/09/16 11:30 58 16 136/90 98 Room Air 07/09/16 10:29 58 16 115/85 96 Room Air I/O 07/09/16 07/09/16 07/09/16 07/10/16 07/10/16 07/10/16 07:00 15:00 23:00 07:00 15:00 23:00 Intake Total 480 ml 120 ml Output Total 600 ml Balance -600 ml 480 ml 120 ml Intake Oral 480 ml 120 ml Output Urine Total 600 ml # Voids 2 1 3 # Bowel Movements 0 0 Result Diagram: 07/10/16 0835 07/09/16 0930 Imaging Last Impressions Abdomen/Pelvis CT 07/09/16 0956 Signed Impressions: Service Date/Time: Saturday, July 09, 2016 11:15 - CONCLUSION: 1. Nondisplaced acute fracture along the superior endplate of L3. 2. 1.7 cm hepatic cyst. 3. 2.7 cm benign left renal cyst. Jarvis Landry MD Lumbar Spine MRI 07/09/16 0000 Signed Impressions: Service Date/Time: Saturday, July 09, 2016 21:31 - CONCLUSION: 1. Mild compression fracture at L3. No retropulsion of posterior fragments. 2. Minimal broad-based disc bulges at multiple levels as described above. 3. Old mild compression fracture at L1 Thomas Giles MD Lumbar Spine CT 07/09/16 0000 Signed Impressions: Service Date/Time: Saturday, July 09, 2016 11:15 - CONCLUSION: 1. Mild acute compression fracture involving the superior endplate of L3. 2. Old compression fracture superior endplate of L1 3. Mild primary degenerative changes with disc degeneration and disc space narrowing L4-5 and L5-S1 4. Bilateral facet arthritis at multiple levels. Jarvis Landry MD Objective Remarks GENERAL: Obese male CARDIOVASCULAR: Regular rate and rhythm without murmurs, gallops, or rubs. RESPIRATORY: Clear to auscultation. Breath sounds equal bilaterally. No wheezes , rales, or rhonchi. GASTROINTESTINAL: Abdomen soft, non-tender, nondistended. No guarding. MUSCULOSKELETAL: stamping mill tender to palpation all over the lumbar area. Pos straight leg on the left. Extremities without edema. NEUROLOGICAL: Awake and alert. Cranial nerves II through XII intact. Generally weak. No focal neuro deficit. Normal speech. A/P Problem List: (1) Lumbar compression fracture ICD Code: S32.000A Status: Acute (2) Polypharmacy ICD Code: Z79.899 Status: Acute (3) Chronic low back pain ICD Code: M54.5 Status: Chronic (4) PTSD (post-traumatic stress disorder) ICD Code: F43.10 Status: Chronic (5) Status post fall ICD Code: Z91.81 Status: Acute (6) Anxiety ICD Code: F41.9 Status: Chronic (7) Depression ICD Code: F32.9 Status: Chronic Assessment and Plan 61-year-old male on multiple sedating medications for PTSD, anxiety, and depression admitted with lumbar compression fracture after a fall. Lumbar compression fracture: CT shows mild acute compression fracture at L3. There is an old fracture at L1 and multilevel degenerative changes. - Neurosurgery consulted. Further plans per Neurosurgery. ?Kyphoplasty per patient. - Pain control. Advised him we need to be cautious with his pain medications and potential for abuse. Change Percocet to Oxycodone. Morphine IV for breakthrough pain. - PT when cleared by Neurosurgery. Fall likely secondary to polypharmacy: The patient is on high-dose of Seroquel, Effexor, Depakote, gabapentin and Xanax. All of which he took at the same time the night of his fall. Based on review of the medical records, it appears that he has had problem with polypharmacy in the past. [facility] - Continue to wean some of this sedating medications. Seroquel decreased to 100 mg twice a day. Hold Xanax. Advise further titration outpatient. PTSD/depression/anxiety: -Continue patient's Depakote, and decreased Seroquel to 100 mg twice a day -Outpatient f/up with [place] psychiatrist History of hypertension: Currently normotensive. - He is borderline bradycardic. Continue to hold atenolol. GI prophylaxis: Stool softener PRN constipation. DVT PPx: SCDs. May need surgery. Problem Qualifiers (1) Lumbar compression fracture: Qualified Code: S32.000A - Lumbar compression fracture, closed, initial encounter Edward Rice MD Jul 10, 2016 09:52
[2016-07-10] MEDS ORDERED: INFLUENZA VIRUS VACCINE (QUADRIVALENT) 0.5 ML SYR IM ONE (10:00)
[2016-07-10 10:16] LABS: BICARBONATE 28.5 MEQ/L (21.0-32.0); POTASSIUM 3.9 MEQ/L (3.5-5.1)
--- NOTE | 2016-07-10 10:59 | HHI.NSPN ---
(Mary Ellen Washburn) Note Status Status: Progress Note (Mary Ellen Washburn) Interval History Interval History This is a 61-year-old male with history of COPD, hypertension, PTSD, depression , anxiety, and chronic low back and left ankle pain, who presented to the emergency room with inability to ambulate, very severe back pain after a fall last night. Apparently he took all of his medications last night, including Effexor, Depakote, Seroquel, gabapentin and Xanax. Shortly after he attempted to make a peanut butter sandwich and developed leg weakness when his leg gave out, and fell backward onto the wall striking back. He was unable to get off from the floor. Immediate onset of severe back pain. His pain is located in the medial lumbar region. MRI Lumbar spine shows acute L3 compression fracture 07/10: for L3 kyphoplasty tomorrow, denies dysesthesias, focal weakness in LE's, denies bowel or bladder incontinence. (Mary Ellen Washburn) Labs, Micro, & Vital Signs Results Date Time Temp Pulse Resp B/P Pulse Ox O2 Delivery O2 Flow Rate FiO2 07/10/16 08:16 96.6 59 20 110/66 97 07/10/16 04:00 96.8 57 20 104/63 94 07/10/16 00:00 96.9 61 20 132/73 98 07/09/16 20:00 95.2 55 20 126/76 97 07/09/16 16:29 97.0 58 20 110/67 99 07/09/16 14:30 58 18 110/65 100 Room Air 07/09/16 13:30 58 18 137/80 100 Room Air 07/09/16 12:30 56 17 165/59 97 Room Air 07/09/16 11:30 58 16 136/90 98 Room Air 07/10/16 07:00 Intake Total 600 ml Output Total 600 ml Balance 0 ml Constitutional Vital Signs Date Time Temp Pulse Resp B/P Pulse Ox O2 Delivery O2 Flow Rate FiO2 07/10/16 08:16 96.6 59 20 110/66 97 07/10/16 04:00 96.8 57 20 104/63 94 07/10/16 00:00 96.9 61 20 132/73 98 07/09/16 20:00 95.2 55 20 126/76 97 07/09/16 16:29 97.0 58 20 110/67 99 07/09/16 14:30 58 18 110/65 100 Room Air 07/09/16 13:30 58 18 137/80 100 Room Air 07/09/16 12:30 56 17 165/59 97 Room Air 07/09/16 11:30 58 16 136/90 98 Room Air 07/10/16 07:00 Intake Total 600 ml Output Total 600 ml Balance 0 ml (Mary Ellen Washburn) Review of Systems/Exam Exam Mr. Pugh is alert and oriented to time, place and person. Speech is fluent. Cranial nerve examination: pupils to be equal, round, and reactive to light. EOMs are intact. Facial motor are normal and symmetrical. Sternocleidomastoid and trapezius muscles have normal and symmetrical strength. Other cranial nerves are grossly intact. Neck is soft and supple. Muscle strength is 5/5 in all muscle groups of both upper extremities . In the lower extremities, strength is 5/5 in both iliopsoas, quadriceps, hamstrings, plantar flexion, dorsiflexion, and extensor hallicus longus. Sensory examination is intact to light touch in both the upper and lower extremities, symmetrically. Deep tendon reflexes. In the lower extremities, the patellar are 2+, bilaterally. There is a bilateral plantar flexion response. Axial lumbar pain illicited with movement Cerebellar examination is intact to [id number] test (Mary Ellen Washburn) Medications Current Medications Current Medications Medications (Trade) Dose Ordered Sig/Anthony Route PRN Reason Start Time Stop Time Status Last Admin Dose Admin IV Flush (NS Flush) 2 ml UNSCH PRN IVF FLUSH AFTER USING IV ACCESS 07/09/16 10:00 07/09/16 10:27 Divalproex Sodium (Depakote Er) 1,500 mg HS PO 07/09/16 21:00 07/09/16 20:54 Gabapentin (Neurontin) 100 mg TID PO 07/09/16 18:00 07/10/16 09:28 Multivitamins (Theragran) 1 tab DAILY PO 07/10/16 09:00 07/10/16 09:28 Prazosin HCl (Minipress) 5 mg HS PO 07/09/16 21:00 07/09/16 23:05 Venlafaxine HCl (Effexor Xr) 37.5 mg DAILY PO 07/10/16 09:00 07/10/16 09:28 Quetiapine Fumarate (SEROquel) 100 mg BID PO 07/10/16 09:00 07/10/16 09:28 IV Flush (NS Flush) 2 ml UNSCH PRN FLUSH FLUSH AFTER USING IV ACCESS 07/09/16 13:30 IV Flush (NS Flush) 2 ml BID FLUSH 07/09/16 21:00 07/10/16 09:30 Acetaminophen (Tylenol) 650 mg Q4H PRN PO TEMP > 100.4 07/09/16 13:30 Ondansetron HCl (Zofran Inj) 4 mg Q6H PRN IVP NAUSEA OR VOMITING 07/09/16 13:30 Docusate Sodium (Colace) 100 mg Q12HR PO 07/09/16 13:30 07/10/16 09:28 Naloxone HCl (Narcan Inj) 0.4 mg UNSCH PRN IV SEE LABEL COMMENTS 07/09/16 13:30 Oxycodone HCl (Roxicodone) 10 mg Q4H PRN PO PAIN GREATER THAN 5 07/10/16 10:00 Morphine Sulfate (Morphine Inj) 4 mg Q3H PRN IV PUSH BREAKTHROUGH PAIN 07/10/16 10:00 (Mary Ellen Washburn) Medical Decision Making MDM Remarks 61 y/o male with intractable lumbar pain, acute L3 compression fracture without retropulsion, nonfocal neurological examination (Mary Ellen Washburn) Plan Plan Remarks discussed with patient again regarding surgical procedure, NPO tonight SCDs and TEDs for dvt prophylaxis, no chemical prophy due to surgery tomorrow dw patient regarding his tobacco use and importance of cessation as this may inhibit his fracture and wound healing (Mary Ellen Washburn) Plan Remarks for kyphoplasty tomorrow. the [id number] details of the surgical procedure, its indications, alternatives, risks, and potential complications. Risks and potential complications include, but are not limited to, infection, blood loss, CSF leak, partial or complete loss of sight in one or both eyes, paresis, paralysis, permanent pain or difficulty swallowing, loss of bowel or bladder function, complications from anesthesia, blood clot, stroke, myocardial infarction, or even . Respiratory. pulmonary toilette, nasotracheal suction, and breathing treatments with nebulizers. PT and OT eval Nutrition. NPO after MN Renal. monitor closely urine output, BUN and creatinine Endocrine. Monitor serial Acu checks and SSI for tight control ID monitor for signs of infection Protonix for stress ulcer prophylaxis Edwin hose and SCD's for DVT prophylaxis The exam, history, and the medical decision-making described in the above note were completed with the assistance of the mid-level provider. I reviewed and agree with the findings presented. I attest that I had a [id number] encounter with the patient on the same day, and personally performed and documented my assessment and findings in the medical record. (Mayito Dickinson MD) Mary Ellen Washburn Jul 10, 2016 10:59 Mayito Dickinson MD Jul 10, 2016 19:26
[2016-07-10 12:26] VITALS: BP 109/63; PULSE 56; RESP 20; TEMP 97; O2SAT 96
[2016-07-10 16:50] VITALS: BP 134/78; PULSE 62; RESP 20; TEMP 95.3; O2SAT 98
[2016-07-10 20:15] VITALS: BP 126/78; PULSE 66; RESP 20; TEMP 95.5; O2SAT 98
[2016-07-10] MEDS: CHLORHEXIDINE GLUCONATE 4% SOLN 120 ML BTL TOP SCH (21:00)
[2016-07-10] MEDS: PRAZOSIN HCL 5 MG CAP PO SCH (21:52)
[2016-07-10] MEDS: DIVALPROEX SODIUM E.R. 500 MG TAB PO SCH (21:52)
[2016-07-10] MEDS: SODIUM CHLOR 0.9% 1000 ML INJ 1,000 ML IV SCH (23:00)
[2016-07-10] MEDS: MORPHINE SULFATE 4 MG/ML INJ IV PUSH PRN (23:06)
[2016-07-11] VITALS (8 sets, daily range): BP systolic 111–167; BP diastolic 69–94; PULSE 66–80; RESP 15–20; TEMP 96.2–97.5; O2SAT 93–99
[2016-07-11] MEDS: MORPHINE SULFATE 4 MG/ML INJ IV PUSH PRN ×2 (02:11→06:28)
[2016-07-11] MEDS ORDERED: VANCOMYCIN INJ 1,000 MG in SODIUM CHLOR 0.9% 250 ML INJ 250 ML IV SCH (06:00)
[2016-07-11] MEDS ORDERED: ceFAZolin 2 GM PREMIX 50 ML IV SCH (06:00)
[2016-07-11] MEDS: VENLAFAXINE HCL XR 37.5 MG CAP PO SCH (08:12)
[2016-07-11] MEDS: QUEtiapine FUMARATE 100 MG TAB PO SCH ×2 (08:12→21:40)
[2016-07-11] MEDS: MULTIVITAMIN TAB PO SCH (08:12)
[2016-07-11] MEDS: GABAPENTIN 100 MG CAP PO SCH ×3 (08:13→17:33)
[2016-07-11] MEDS: DOCUSATE SODIUM 100 MG CAP PO SCH ×2 (08:13→21:40)
[2016-07-11] MEDS: SODIUM CHLOR 0.9% 1000 ML INJ 1,000 ML IV SCH (08:13)
[2016-07-11] MEDS: SODIUM CHLORIDE 0.9% FLUSH 5 ML FLUSH FLUSH SCH ×2 (08:13→21:00)
--- NOTE | 2016-07-11 08:21 | HHI.PR ---
Subjective Remarks This is a pleasant 61 y/o male with medical History of COPD, Hypertension, PTSD , Depression, Anxiety, and chronic low back pain and left ankle pain, came to ER due to inability to ambulate, back pain after he sustained a fall the night before coming to ER, , back pain after he sustained a fall last night. he uses Effexor, Depakote, Seroquel, gabapentin and Xanax. was unable to get off the floor, Workup in the emergency room revealed an L3 compression fractures with multilevel degenerative changes. Patient reports [facility] and was given gabapentin earlier this month. Neurosurgery has been consulted from the emergency department. Seen in his bedroom and discussed with nurse Mr. Bae no nausea, vomit or diarrhea, improving pain, he will have Kyphoplasty later today. Objective Vital Signs Date Time Temp Pulse Resp B/P Pulse Ox O2 Delivery O2 Flow Rate FiO2 07/11/16 04:00 97.1 80 20 133/80 93 07/11/16 00:00 96.8 72 20 150/94 99 07/10/16 20:15 95.5 66 20 126/78 98 07/10/16 16:50 95.3 62 20 134/78 98 07/10/16 12:26 97.0 56 20 109/63 96 I/O 07/10/16 07/10/16 07/10/16 07/11/16 07/11/16 07/11/16 07:00 15:00 23:00 07:00 15:00 23:00 Intake Total 120 ml 1200 ml 240 ml Output Total 1100 ml Balance 120 ml 1200 ml -860 ml Intake Oral 120 ml 1200 ml 240 ml Output Urine Total 1100 ml # Voids 3 4 # Bowel Movements 0 0 0 Result Diagram: 07/10/16 0835 07/10/16 0835 Imaging Last Impressions Abdomen/Pelvis CT 07/09/16 0956 Signed Impressions: Service Date/Time: Saturday, July 09, 2016 11:15 - CONCLUSION: 1. Nondisplaced acute fracture along the superior endplate of L3. 2. 1.7 cm hepatic cyst. 3. 2.7 cm benign left renal cyst. Jarvis Landry MD Lumbar Spine MRI 07/09/16 0000 Signed Impressions: Service Date/Time: Saturday, July 09, 2016 21:31 - CONCLUSION: 1. Mild compression fracture at L3. No retropulsion of posterior fragments. 2. Minimal broad-based disc bulges at multiple levels as described above. 3. Old mild compression fracture at L1 Thomas Giles MD Lumbar Spine CT 07/09/16 0000 Signed Impressions: Service Date/Time: Saturday, July 09, 2016 11:15 - CONCLUSION: 1. Mild acute compression fracture involving the superior endplate of L3. 2. Old compression fracture superior endplate of L1 3. Mild primary degenerative changes with disc degeneration and disc space narrowing L4-5 and L5-S1 4. Bilateral facet arthritis at multiple levels. Jarvis Landry MD Procedures No procedures yet Other Results Laboratory Tests Test 07/10/16 08:35 White Blood Count 4.5 TH/MM3 Red Blood Count 3.93 MIL/MM3 Hemoglobin 12.0 GM/DL Hematocrit 35.4 % Mean Corpuscular Volume 90.2 FL Mean Corpuscular Hemoglobin 30.6 PG Mean Corpuscular Hemoglobin 33.9 % Concent Red Cell Distribution Width 14.2 % Platelet Count 122 TH/MM3 Mean Platelet Volume 7.0 FL Neutrophils (%) (Auto) 52.8 % Lymphocytes (%) (Auto) 38.0 % Monocytes (%) (Auto) 5.7 % Eosinophils (%) (Auto) 2.9 % Basophils (%) (Auto) 0.6 % Neutrophils # (Auto) 2.4 TH/MM3 Lymphocytes # (Auto) 1.7 TH/MM3 Monocytes # (Auto) 0.3 TH/MM3 Eosinophils # (Auto) 0.1 TH/MM3 Basophils # (Auto) 0.0 TH/MM3 CBC Comment DIFF FINAL Differential Comment Sodium Level 140 MEQ/L Potassium Level 3.9 MEQ/L Chloride Level 102 MEQ/L Carbon Dioxide Level 28.5 MEQ/L Anion Gap 10 MEQ/L Blood Urea Nitrogen 12 MG/DL Creatinine 0.95 MG/DL Estimat Glomerular Filtration 81 ML/MIN Rate Random Glucose 142 MG/DL Calcium Level 8.4 MG/DL Objective Remarks GENERAL: Obese male CARDIOVASCULAR: Regular rate and rhythm without murmurs, gallops, or rubs. RESPIRATORY: Clear to auscultation. Breath sounds equal bilaterally. No wheezes , rales, or rhonchi. GASTROINTESTINAL: Abdomen soft, non-tender, nondistended. No guarding. MUSCULOSKELETAL: shot coat tender to palpation all over the lumbar area. Pos straight leg on the left. Extremities without edema. NEUROLOGICAL: Awake and alert. Cranial nerves II through XII intact. Generally weak. No focal neuro deficit. Normal speech. Medications and IVs Current Medications Medications (Trade) Dose Ordered Sig/Anthony Route Start Time Stop Time Status Last Admin (NS Flush) 2 ml UNSCH PRN IVF 07/09/16 10:00 07/09/16 10:27 (Depakote Er) 1,500 mg HS PO 07/09/16 21:00 07/10/16 21:52 (Neurontin) 100 mg TID PO 07/09/16 18:00 07/11/16 08:13 (Theragran) 1 tab DAILY PO 07/10/16 09:00 07/11/16 08:12 (Minipress) 5 mg HS PO 07/09/16 21:00 07/10/16 21:52 (Effexor Xr) 37.5 mg DAILY PO 07/10/16 09:00 07/11/16 08:12 (SEROquel) 100 mg BID PO 07/10/16 09:00 07/11/16 08:12 (NS Flush) 2 ml UNSCH PRN FLUSH 07/09/16 13:30 (NS Flush) 2 ml BID FLUSH 07/09/16 21:00 07/10/16 21:53 (Tylenol) 650 mg Q4H PRN PO 07/09/16 13:30 (Zofran Inj) 4 mg Q6H PRN IVP 07/09/16 13:30 (Colace) 100 mg Q12HR PO 07/09/16 13:30 07/11/16 08:13 (Narcan Inj) 0.4 mg UNSCH PRN IV 07/09/16 13:30 (Roxicodone) 10 mg Q4H PRN PO 07/10/16 10:00 07/11/16 05:47 Morphine Sulfate 4 mg 4 mg Q3H PRN IV PUSH 07/10/16 10:00 07/11/16 06:28 (NS 1000 ml Inj) 1,000 ml @ 100 mls/hr Q10H IV 07/10/16 23:00 07/11/16 08:13 (Hibiclens 4% Top Soln) 1 applic HS TOP 07/10/16 21:00 07/11/16 21:01 07/10/16 21:00 A/P Assessment and Plan 61-year-old male on multiple sedating medications for PTSD, anxiety, and depression admitted with lumbar compression fracture after a fall. Lumbar compression fracture: CT shows mild acute compression fracture at L3. There is an old fracture at L1 and multilevel degenerative changes. - Neurosurgery following recommended Kyphoplasty today - Pain control. Advised him we need to be cautious with his pain medications and potential for abuse. Change Percocet to Oxycodone. Morphine IV for breakthrough pain. - PT when cleared by Neurosurgery. Fall likely secondary to polypharmacy: The patient is on high-dose of Seroquel, Effexor, Depakote, gabapentin and Xanax. All of which he took at the same time the night of his fall. Based on review of the medical records, it appears that he has had problem with polypharmacy in the past. [facility] - Continue to wean some of this sedating medications. Seroquel decreased to 100 mg twice a day. Hold Xanax. Advise further titration outpatient. PTSD/depression/anxiety: -Continue patient's Depakote, and decreased Seroquel to 100 mg twice a day -Outpatient f/up with [place] psychiatrist History of hypertension: Currently normotensive. - He is borderline bradycardic. Continue to hold atenolol. GI prophylaxis: Stool softener PRN constipation. DVT PPx: SCDs. awaiting for Kyphoplasty later today. Discharge Planning Awaiting clearance by Neurosurgery specialist. Miguel Maya MD Jul 11, 2016 08:21
[2016-07-11] MEDS ORDERED: BUPIVACAINE/EPINEPHRINE 0.25% 50 ML VIAL ONE (11:57)
[2016-07-11] MEDS ORDERED: ACETAMINOPHEN 1000 MG/100 ML VIAL IV ONE (12:00)
[2016-07-11] MEDS ORDERED: NEOSTIGMINE 3 MG/3 ML SYR IV ONE (12:00)
[2016-07-11] MEDS ORDERED: LACTATED RINGER'S 1000 ML INJ 1,000 ML IV ONE (12:00)
[2016-07-11] MEDS ORDERED: ONDANSETRON HCL 4 MG/2 ML VIAL IV PUSH ONE (12:00)
[2016-07-11] MEDS ORDERED: PROPOFOL 200 MG/20 ML AMP IV ONE (12:00)
[2016-07-11] MEDS ORDERED: BUPIVACAINE/EPINEPHRINE 0.5% PF 30 ML VIAL ONE (12:52)
[2016-07-11] MEDS ORDERED: fentaNYL CITRATE 250 MCG/5 ML AMP ONE (14:01)
[2016-07-11] MEDS ORDERED: MORPHINE SULFATE 4 MG/ML INJ IV PUSH PRN ×2 (14:45)
[2016-07-11] MEDS ORDERED: ACETAMINOPHEN 325 MG TAB PO PRN (14:45)
[2016-07-11] MEDS ORDERED: SODIUM CHLORIDE 0.9% FLUSH 5 ML FLUSH IVF PRN (14:45)
[2016-07-11] MEDS ORDERED: ACETAMINOPHEN/HYDROcodone 325 MG/10 MG TAB PO PRN (14:45)
--- NOTE | 2016-07-11 16:54 | RADRPT ---
EXAM DATE/TIME: 07/11/2016 13:35 [facility] COMPARISON: No previous studies available for comparison. INDICATIONS : L3 kyphoplasty. MEDICAL HISTORY : None. SURGICAL HISTORY : None. ENCOUNTER: Subsequent ACUITY: 3 days PAIN SCORE: Non-responsive. LOCATION: Lumbar spine. FINDINGS: Two view examination was performed. Targeted intraoperative OEC spot images presumably of the L3 vert ebral body show bilateral kyphoplasty. Contrasted cement is contained within the confines of the vert ebral body itself. CONCLUSION: Bilateral kyphoplasty of what is described as the L3 vertebral body. Localization is difficult d ue to the limited field of view no Rajesh Shane MD on July 11, 2016 at 16:51 Board Certified Radiologist. This report was verified electronically.
[2016-07-11] MEDS: NS + KCL 20 MEQ INJ 1,000 ML IV SCH (17:34)
[2016-07-11] MEDS: ACETAMINOPHEN/HYDROcodone 325 MG/10 MG TAB PO PRN (17:34)
[2016-07-11] MEDS: ceFAZolin 2 GM PREMIX 50 ML IV SCH (17:35)
[2016-07-11] MEDS: CHLORHEXIDINE GLUCONATE 4% SOLN 120 ML BTL TOP SCH (21:00)
[2016-07-11] MEDS: SODIUM CHLORIDE 0.9% FLUSH 5 ML FLUSH IVF SCH (21:00)
[2016-07-11] MEDS: PRAZOSIN HCL 5 MG CAP PO SCH (21:40)
[2016-07-11] MEDS: DIVALPROEX SODIUM E.R. 500 MG TAB PO SCH (21:41)
[2016-07-12] MEDS: ceFAZolin 2 GM PREMIX 50 ML IV SCH ×2 (01:09→09:00)
[2016-07-12] MEDS: NS + KCL 20 MEQ INJ 1,000 ML IV SCH ×2 (01:10→10:05)
[2016-07-12 04:32] VITALS: BP 153/73; PULSE 69; RESP 16; TEMP 97; O2SAT 96
[2016-07-12] MEDS ORDERED: ATENOLOL 25 MG TAB PO ONE (06:30)
[2016-07-12 07:31] LABS: BICARBONATE 29.3 MEQ/L (21.0-32.0); MAGNESIUM 2.1 MG/DL (1.5-2.5); POTASSIUM 4.1 MEQ/L (3.5-5.1)
--- NOTE | 2016-07-12 07:59 | HHI.PR ---
Subjective Remarks This is a pleasant 61 y/o male with medical History of COPD, Hypertension, PTSD , Depression, Anxiety, and chronic low back pain and left ankle pain, came to ER due to inability to ambulate, back pain after he sustained a fall the night before coming to ER, , back pain after he sustained a fall last night. he uses Effexor, Depakote, Seroquel, gabapentin and Xanax. was unable to get off the floor, Workup in the emergency room revealed an L3 compression fractures with multilevel degenerative changes. Patient reports [facility] and was given gabapentin earlier this month. Neurosurgery has been consulted from the emergency department. 07/12 Seen in the room in the presence of nurse Mr. Bae he called the Neurosurgeon and answered the Nurse in chief and recommended for discharge, in behalf of the Neurosurgery specialist, no new recommendations will follow as outpatient. No Nausea, vomit or diarrhea, the patient is already dressed waiting to go home. Objective Vital Signs Date Time Temp Pulse Resp B/P Pulse Ox O2 Delivery O2 Flow Rate FiO2 07/12/16 04:32 97.0 69 16 153/73 96 07/11/16 23:55 97.4 77 16 159/84 96 07/11/16 20:03 97.5 77 16 167/86 98 07/11/16 16:00 96.2 70 15 131/81 96 07/11/16 15:35 97 21 07/11/16 14:45 97.7 63 15 110/80 94 Room Air 07/11/16 14:30 65 15 111/73 96 Room Air 07/11/16 14:15 07/11/16 14:15 62 15 118/70 96 Room Air 07/11/16 14:00 62 15 129/80 99 Simple Mask 6 07/11/16 13:55 97.5 69 15 135/78 97 Simple Mask 6 07/11/16 12:00 97.4 66 15 127/69 95 07/11/16 08:00 96.4 76 15 111/78 95 I/O 07/11/16 07/11/16 07/11/16 07/12/16 07/12/16 07/12/16 07:00 15:00 23:00 07:00 15:00 23:00 Intake Total 240 ml 900 ml Output Total 1100 ml 645 ml 2000 ml Balance -860 ml 255 ml -2000 ml Intake Oral 240 ml IV Total 100 ml Other 800 ml Output Urine Total 1100 ml 605 ml 2000 ml Estimated Blood Loss 40 ml # Bowel Movements 0 0 0 Result Diagram: 07/10/16 0835 07/12/16 0630 Imaging Last Impressions Lumbar Spine X-Ray 07/11/16 0000 Signed Impressions: Service Date/Time: Monday, July 11, 2016 13:35 - CONCLUSION: Bilateral kyphoplasty of what is described as the L3 vertebral body. Localization is difficult due to the limited field of view no Rajesh Shane MD Abdomen/Pelvis CT 07/09/16 0956 Signed Impressions: Service Date/Time: Saturday, July 09, 2016 11:15 - CONCLUSION: 1. Nondisplaced acute fracture along the superior endplate of L3. 2. 1.7 cm hepatic cyst. 3. 2.7 cm benign left renal cyst. Jarvis Landry MD Lumbar Spine MRI 07/09/16 0000 Signed Impressions: Service Date/Time: Saturday, July 09, 2016 21:31 - CONCLUSION: 1. Mild compression fracture at L3. No retropulsion of posterior fragments. 2. Minimal broad-based disc bulges at multiple levels as described above. 3. Old mild compression fracture at L1 Thomas Giles MD Lumbar Spine CT 07/09/16 0000 Signed Impressions: Service Date/Time: Saturday, July 09, 2016 11:15 - CONCLUSION: 1. Mild acute compression fracture involving the superior endplate of L3. 2. Old compression fracture superior endplate of L1 3. Mild primary degenerative changes with disc degeneration and disc space narrowing L4-5 and L5-S1 4. Bilateral facet arthritis at multiple levels. Jarvis Landry MD Procedures No procedures yet Other Results Laboratory Tests Test 07/10/16 07/12/16 08:35 06:30 White Blood Count 4.5 TH/MM3 Red Blood Count 3.93 MIL/MM3 Hemoglobin 12.0 GM/DL Hematocrit 35.4 % Mean Corpuscular Volume 90.2 FL Mean Corpuscular Hemoglobin 30.6 PG Mean Corpuscular Hemoglobin 33.9 % Concent Red Cell Distribution Width 14.2 % Platelet Count 122 TH/MM3 Mean Platelet Volume 7.0 FL Neutrophils (%) (Auto) 52.8 % Lymphocytes (%) (Auto) 38.0 % Monocytes (%) (Auto) 5.7 % Eosinophils (%) (Auto) 2.9 % Basophils (%) (Auto) 0.6 % Neutrophils # (Auto) 2.4 TH/MM3 Lymphocytes # (Auto) 1.7 TH/MM3 Monocytes # (Auto) 0.3 TH/MM3 Eosinophils # (Auto) 0.1 TH/MM3 Basophils # (Auto) 0.0 TH/MM3 CBC Comment DIFF FINAL Differential Comment Sodium Level 140 MEQ/L Potassium Level 4.1 MEQ/L Chloride Level 104 MEQ/L Carbon Dioxide Level 29.3 MEQ/L Anion Gap 7 MEQ/L Blood Urea Nitrogen 10 MG/DL Creatinine 0.93 MG/DL Estimat Glomerular Filtration 83 ML/MIN Rate Random Glucose 122 MG/DL Calcium Level 9.0 MG/DL Magnesium Level 2.1 MG/DL Objective Remarks GENERAL: Obese male CARDIOVASCULAR: Regular rate and rhythm without murmurs, gallops, or rubs. RESPIRATORY: Clear to auscultation. Breath sounds equal bilaterally. No wheezes , rales, or rhonchi. GASTROINTESTINAL: Abdomen soft, non-tender, nondistended. No guarding. MUSCULOSKELETAL: crib tender to palpation all over the lumbar area. Pos straight leg on the left. Extremities without edema.Orthotics in place. NEUROLOGICAL: Awake and alert. Cranial nerves II through XII intact. Generally weak. No focal neuro deficit. Normal speech. Medications and IVs Current Medications Medications (Trade) Dose Ordered Sig/Anthony Route Start Time Stop Time Status Last Admin (NS Flush) 2 ml UNSCH PRN IVF 07/09/16 10:00 07/09/16 10:27 (Depakote Er) 1,500 mg HS PO 07/09/16 21:00 07/11/16 21:41 (Neurontin) 100 mg TID PO 07/09/16 18:00 07/11/16 17:33 (Theragran) 1 tab DAILY PO 07/10/16 09:00 07/11/16 08:12 (Minipress) 5 mg HS PO 07/09/16 21:00 07/11/16 21:40 (Effexor Xr) 37.5 mg DAILY PO 07/10/16 09:00 07/11/16 08:12 (SEROquel) 100 mg BID PO 07/10/16 09:00 07/11/16 21:40 (NS Flush) 2 ml UNSCH PRN FLUSH 07/09/16 13:30 (NS Flush) 2 ml BID FLUSH 07/09/16 21:00 07/10/16 21:53 (Tylenol) 650 mg Q4H PRN PO 07/09/16 13:30 (Zofran Inj) 4 mg Q6H PRN IVP 07/09/16 13:30 (Narcan Inj) 0.4 mg UNSCH PRN IV 07/09/16 13:30 Oxycodone HCl 10 mg 10 mg Q4H PRN PO 07/10/16 10:00 07/12/16 06:35 (NS + KCl 20 Meq Inj) 1,000 ml @ 100 mls/hr Q10H IV 07/11/16 14:37 07/12/16 01:10 (NS Flush) 2 ml UNSCH PRN IVF 07/11/16 14:45 IV Flush 2 ml 2 ml BID IVF 07/11/16 21:00 (Ancef 2 Gm Premix) 50 ml @ 100 mls/hr Q8H IV 07/11/16 17:00 07/12/16 09:29 07/12/16 01:09 (Colace) 100 mg BID PO 07/11/16 21:00 07/11/16 21:40 (Protonix) 40 mg DAILY PO 07/12/16 09:00 ([place] 10-325 Mg) 1 tab Q4H PRN PO 07/11/16 14:45 ([place] 10-325 Mg) 2 tab Q4H PRN PO 07/11/16 14:45 07/11/16 17:34 (Morphine Inj) 2 mg Q2H PRN IV PUSH 07/11/16 14:45 (Morphine Inj) 4 mg Q2H PRN IV PUSH 07/11/16 14:45 (Tylenol) 650 mg Q4H PRN PO 07/11/16 14:45 A/P Assessment and Plan 61-year-old male on multiple sedating medications for PTSD, anxiety, and depression admitted with lumbar compression fracture after a fall. Lumbar compression fracture: CT shows mild acute compression fracture at L3. There is an old fracture at L1 and multilevel degenerative changes. - Status post Kyphoplasty as per Neurosurgery specialist, Doctor Mayito Dickinson. Fall likely secondary to polypharmacy: The patient is on high-dose of Seroquel, Effexor, Depakote, gabapentin and Xanax. All of which he took at the same time the night of his fall. Based on review of the medical records, it appears that he has had problem with polypharmacy in the past. [facility] - Continue to wean some of this sedating medications. Seroquel decreased to 100 mg twice a day. Hold Xanax. Advise further titration outpatient. PTSD/depression/anxiety: -Continue patient's Depakote, and decreased Seroquel to 100 mg twice a day -Outpatient f/up with [place] psychiatrist History of hypertension: Currently normotensive. - He is borderline bradycardic. Continue to hold atenolol. GI prophylaxis: Stool softener PRN constipation. DVT PPx: SCDs. status post Kyphoplasty ready for discharge and recommended for discharge and follow by Neurosurgery Discharge Planning Discharge Home Miguel Maya MD Jul 12, 2016 07:59
[2016-07-12 08:00] VITALS: BP 163/99; PULSE 70; RESP 19; TEMP 97; O2SAT 97
[2016-07-12] MEDS: SODIUM CHLORIDE 0.9% FLUSH 5 ML FLUSH IVF SCH (09:00)
[2016-07-12] MEDS: SODIUM CHLORIDE 0.9% FLUSH 5 ML FLUSH FLUSH SCH (09:00)
[2016-07-12] MEDS ORDERED: PANTOPRAZOLE SOD 40 MG DELAYED RELEASE TAB PO SCH (09:00)
[2016-07-12] MEDS: MULTIVITAMIN TAB PO SCH (10:03)
[2016-07-12] MEDS: GABAPENTIN 100 MG CAP PO SCH (10:04)
[2016-07-12] MEDS: QUEtiapine FUMARATE 100 MG TAB PO SCH (10:04)
[2016-07-12] MEDS: VENLAFAXINE HCL XR 37.5 MG CAP PO SCH (10:04)
[2016-07-12] MEDS: DOCUSATE SODIUM 100 MG CAP PO SCH (10:04)
[2016-07-12] MEDS: ACETAMINOPHEN/HYDROcodone 325 MG/10 MG TAB PO PRN (10:06)
--- NOTE | 2016-07-12 10:42 | HHI.NSPN ---
(Mary Ellen Washburn) Note Status Status: Progress Note (Mary Ellen Washburn) Interval History Interval History This is a 61-year-old male with history of COPD, hypertension, PTSD, depression , anxiety, and chronic low back and left ankle pain, who presented to the emergency room with inability to ambulate, very severe back pain after a fall last night. Apparently he took all of his medications last night, including Effexor, Depakote, Seroquel, gabapentin and Xanax. Shortly after he attempted to make a peanut butter sandwich and developed leg weakness when his leg gave out, and fell backward onto the wall striking back. He was unable to get off from the floor. Immediate onset of severe back pain. His pain is located in the medial lumbar region. MRI Lumbar spine shows acute L3 compression fracture 07/10: for L3 kyphoplasty tomorrow, denies dysesthesias, focal weakness in LE's, denies bowel or bladder incontinence. 07/12: s/p L3 kyphoplasty, doing well, denies focal weakness, dysesthesias, incontinence. (Mary Ellen Washburn) Labs, Micro, & Vital Signs Results Date Time Temp Pulse Resp B/P Pulse Ox O2 Delivery O2 Flow Rate FiO2 07/12/16 08:00 97.0 70 19 163/99 97 07/12/16 04:32 97.0 69 16 153/73 96 07/11/16 23:55 97.4 77 16 159/84 96 07/11/16 20:03 97.5 77 16 167/86 98 07/11/16 16:00 96.2 70 15 131/81 96 07/11/16 15:35 97 21 07/11/16 14:45 97.7 63 15 110/80 94 Room Air 07/11/16 14:30 65 15 111/73 96 Room Air 07/11/16 14:15 07/11/16 14:15 62 15 118/70 96 Room Air 07/11/16 14:00 62 15 129/80 99 Simple Mask 6 07/11/16 13:55 97.5 69 15 135/78 97 Simple Mask 6 07/11/16 12:00 97.4 66 15 127/69 95 07/12/16 07:00 Intake Total 900 ml Output Total 2645 ml Balance -1745 ml Constitutional Vital Signs Date Time Temp Pulse Resp B/P Pulse Ox O2 Delivery O2 Flow Rate FiO2 07/12/16 08:00 97.0 70 19 163/99 97 07/12/16 04:32 97.0 69 16 153/73 96 07/11/16 23:55 97.4 77 16 159/84 96 07/11/16 20:03 97.5 77 16 167/86 98 07/11/16 16:00 96.2 70 15 131/81 96 07/11/16 15:35 97 21 07/11/16 14:45 97.7 63 15 110/80 94 Room Air 07/11/16 14:30 65 15 111/73 96 Room Air 07/11/16 14:15 07/11/16 14:15 62 15 118/70 96 Room Air 07/11/16 14:00 62 15 129/80 99 Simple Mask 6 07/11/16 13:55 97.5 69 15 135/78 97 Simple Mask 6 07/11/16 12:00 97.4 66 15 127/69 95 07/12/16 07:00 Intake Total 900 ml Output Total 2645 ml Balance -1745 ml (Mary Ellen Washburn) Review of Systems/Exam Exam Mr. Pugh is alert and oriented to time, place and person. Speech is fluent. Dressed in his regular clothing. Cranial nerve examination: pupil equal. Facial motor are normal and symmetrical. Neck is soft and supple. Muscle strength: 5/5 in both iliopsoas, quadriceps, hamstrings, plantar flexion , dorsiflexion, and extensor hallicus longus. moves upper extremities well Sensory examination is intact to light touch in both the upper and lower extremities Cerebellar examination is intact to [id number] test (Mary Ellen Washburn) Medications Current Medications Current Medications Medications (Trade) Dose Ordered Sig/Anthony Route PRN Reason Start Time Stop Time Status Last Admin Dose Admin IV Flush (NS Flush) 2 ml UNSCH PRN IVF FLUSH AFTER USING IV ACCESS 07/09/16 10:00 07/09/16 10:27 Divalproex Sodium (Depakote Er) 1,500 mg HS PO 07/09/16 21:00 07/11/16 21:41 Gabapentin (Neurontin) 100 mg TID PO 07/09/16 18:00 07/12/16 10:04 Multivitamins (Theragran) 1 tab DAILY PO 07/10/16 09:00 07/12/16 10:03 Prazosin HCl (Minipress) 5 mg HS PO 07/09/16 21:00 07/11/16 21:40 Venlafaxine HCl (Effexor Xr) 37.5 mg DAILY PO 07/10/16 09:00 07/12/16 10:04 Quetiapine Fumarate (SEROquel) 100 mg BID PO 07/10/16 09:00 07/12/16 10:04 IV Flush (NS Flush) 2 ml UNSCH PRN FLUSH FLUSH AFTER USING IV ACCESS 07/09/16 13:30 IV Flush (NS Flush) 2 ml BID FLUSH 07/09/16 21:00 07/10/16 21:53 Acetaminophen (Tylenol) 650 mg Q4H PRN PO TEMP > 100.4 07/09/16 13:30 Ondansetron HCl (Zofran Inj) 4 mg Q6H PRN IVP NAUSEA OR VOMITING 07/09/16 13:30 Naloxone HCl (Narcan Inj) 0.4 mg UNSCH PRN IV SEE LABEL COMMENTS 07/09/16 13:30 Oxycodone HCl 10 mg 10 mg Q4H PRN PO PAIN GREATER THAN 5 07/10/16 10:00 07/12/16 06:35 Potassium Chloride/Sodium Chloride (NS + KCl 20 Meq Inj) 1,000 ml @ 100 mls/hr Q10H IV 07/11/16 14:37 07/12/16 01:10 IV Flush (NS Flush) 2 ml UNSCH PRN IVF FLUSH AFTER USING IV ACCESS 07/11/16 14:45 IV Flush (NS Flush) 2 ml BID IVF 07/11/16 21:00 Docusate Sodium (Colace) 100 mg BID PO 07/11/16 21:00 07/12/16 10:04 Pantoprazole Sodium (Protonix) 40 mg DAILY PO 07/12/16 09:00 07/12/16 10:04 Acetaminophen/ Hydrocodone Bitart (Highland 10-325 Mg) 1 tab Q4H PRN PO PAIN SCALE 1 TO 5 07/11/16 14:45 Acetaminophen/ Hydrocodone Bitart ([place] 10-325 Mg) 2 tab Q4H PRN PO PAIN SCALE 6 TO 10 07/11/16 14:45 07/12/16 10:06 Morphine Sulfate (Morphine Inj) 2 mg Q2H PRN IV PUSH PAIN SCALE 1 TO 6 07/11/16 14:45 Morphine Sulfate (Morphine Inj) 4 mg Q2H PRN IV PUSH PAIN SCALE 7 TO 10 07/11/16 14:45 Acetaminophen (Tylenol) 650 mg Q4H PRN PO TEMPERATURE > 101.5 F 07/11/16 14:45 (Mary Ellen Washburn) Medical Decision Making MDM Remarks 61 y/o male with intractable lumbar pain, acute L3 compression fracture without retropulsion, nonfocal neurological examination (Mary Ellen Washburn) Plan Plan Remarks clear to dc from NRS standpoint dw pt regarding activity restriction and wound care back brace when out of bed f/u Dr. Dickinson office in 3 weeks (Mary Ellen Washburn) Attending Statement The exam, history, and the medical decision-making described in the above note were completed with the assistance of the mid-level provider. I reviewed and agree with the findings presented. I attest that I had a ciao-pe-hzed encounter with the patient on the same day, and personally performed and documented my assessment and findings in the medical record. (Mayito Dickinson MD) Mary Ellen Washburn Jul 12, 2016 10:42 Mayito Dickinson MD Jul 14, 2016 21:38
[2016-07-12] MEDS ORDERED: HYDR-3583 PO (11:43)
--- NOTE | 2016-07-12 11:46 | HHI.DS ---
Discharge Summary Admission Date Jul 09, 2016 at 12:19 Discharge Date: Jul 12, 2016 Admitting Diagnosis L3 Compression fracture. (1) Lumbar compression fracture ICD Code: S32.000A Diagnosis: Principal (2) Polypharmacy ICD Code: Z79.899 Diagnosis: Principal (3) Chronic low back pain ICD Code: M54.5 Diagnosis: Principal (4) PTSD (post-traumatic stress disorder) ICD Code: F43.10 Diagnosis: Secondary (5) Status post fall ICD Code: Z91.81 Diagnosis: Principal (6) Anxiety ICD Code: F41.9 Diagnosis: Secondary (7) Depression ICD Code: F32.9 Diagnosis: Secondary Procedures L3 Kyphoplasty Brief History - From Admission 61-year-old male with a medical history significant for COPD, hypertension, PTSD , depression, anxiety, and chronic low back and left ankle pain who presented to the emergency room due to inability to ambulate, back pain after he sustained a fall last night. Patient reports he took all of his medications last night including Effexor, Depakote, Seroquel, gabapentin and Xanax. Shortly after went to make a peanut butter sandwich and he had some leg weakness and fell backward onto the wall heating his back. He was unable to get off from the floor. Family helped him to bed and he slept until this morning when he was unable to get out of the bed secondary to significant pain. He denied any loss of consciousness or head trauma. Workup in the emergency room revealed an L3 compression fractures with multilevel degenerative changes. Patient reports [facility] and was given gabapentin earlier this month. Neurosurgery has been consulted from the emergency department. CBC/BMP: 07/10/16 0835 07/12/16 0630 Significant Findings Laboratory Tests Test 07/10/16 07/12/16 08:35 06:30 Red Blood Count 3.93 MIL/MM3 (4.50-5.90) Hemoglobin 12.0 GM/DL (13.0-17.0) Hematocrit 35.4 % (39.0-51.0) Platelet Count 122 TH/MM3 (150-450) Estimat Glomerular Filtration 81 ML/MIN (>89) 83 ML/MIN (>89) Rate Random Glucose 142 MG/DL 122 MG/DL (74-106) (74-106) Calcium Level 8.4 MG/DL (8.5-10.1) Imaging Last Impressions Lumbar Spine X-Ray 07/11/16 0000 Signed Impressions: Service Date/Time: Monday, July 11, 2016 13:35 - CONCLUSION: Bilateral kyphoplasty of what is described as the L3 vertebral body. Localization is difficult due to the limited field of view no Rajesh Shane MD Abdomen/Pelvis CT 07/09/16 0956 Signed Impressions: Service Date/Time: Saturday, July 09, 2016 11:15 - CONCLUSION: 1. Nondisplaced acute fracture along the superior endplate of L3. 2. 1.7 cm hepatic cyst. 3. 2.7 cm benign left renal cyst. Jarvis Landry MD Lumbar Spine MRI 07/09/16 0000 Signed Impressions: Service Date/Time: Saturday, July 09, 2016 21:31 - CONCLUSION: 1. Mild compression fracture at L3. No retropulsion of posterior fragments. 2. Minimal broad-based disc bulges at multiple levels as described above. 3. Old mild compression fracture at L1 Thomas Giles MD Lumbar Spine CT 07/09/16 0000 Signed Impressions: Service Date/Time: Saturday, July 09, 2016 11:15 - CONCLUSION: 1. Mild acute compression fracture involving the superior endplate of L3. 2. Old compression fracture superior endplate of L1 3. Mild primary degenerative changes with disc degeneration and disc space narrowing L4-5 and L5-S1 4. Bilateral facet arthritis at multiple levels. Jarvis Landry MD PE at Discharge GENERAL: Obese male CARDIOVASCULAR: Regular rate and rhythm without murmurs, gallops, or rubs. RESPIRATORY: Clear to auscultation. Breath sounds equal bilaterally. No wheezes , rales, or rhonchi. GASTROINTESTINAL: Abdomen soft, non-tender, nondistended. No guarding. MUSCULOSKELETAL: rolling machine tender to palpation all over the lumbar area. Pos straight leg on the left. Extremities without edema.Orthotics in place. NEUROLOGICAL: Awake and alert. Cranial nerves II through XII intact. Generally weak. No focal neuro deficit. Normal speech. Hospital Course This is a pleasant 61 y/o male with medical History of COPD, Hypertension, PTSD , Depression, Anxiety, and chronic low back pain and left ankle pain, came to ER due to inability to ambulate, back pain after he sustained a fall the night before coming to ER, , back pain after he sustained a fall last night. he uses Effexor, Depakote, Seroquel, gabapentin and Xanax. was unable to get off the floor, Workup in the emergency room revealed an L3 compression fractures with multilevel degenerative changes. Patient reports he was taken off oxycodone and morphine by the MD and was given gabapentin earlier this month. Neurosurgery has been consulted from the emergency department. 07/12 Seen in the room in the presence of nurse Mr. Bae he called the Neurosurgeon and answered the Nurse in chief and recommended for discharge, in behalf of the Neurosurgery specialist, no new recommendations will follow as outpatient. No Nausea, vomit or diarrhea, the patient is already dressed waiting to go home. Assessment and Plan 61-year-old male on multiple sedating medications for PTSD, anxiety, and depression admitted with lumbar compression fracture after a fall. Lumbar compression fracture: CT shows mild acute compression fracture at L3. There is an old fracture at L1 and multilevel degenerative changes. - Status post Kyphoplasty as per Neurosurgery specialist, Doctor Mayito Dickinson. Fall likely secondary to polypharmacy: The patient is on high-dose of Seroquel, Effexor, Depakote, gabapentin and Xanax. All of which he took at the same time the night of his fall. Based on review of the medical records, it appears that he has had problem with polypharmacy in the past. [facility] - Continue to wean some of this sedating medications. Seroquel decreased to 100 mg twice a day. Hold Xanax. Advise further titration outpatient. PTSD/depression/anxiety: -Continue patient's Depakote, and decreased Seroquel to 100 mg twice a day -Outpatient f/up with MD psychiatrist History of hypertension: Currently normotensive. - He is borderline bradycardic. Continue to hold atenolol. GI prophylaxis: Stool softener PRN constipation. DVT PPx: SCDs. status post Kyphoplasty ready for discharge and recommended for discharge and follow by Neurosurgery Discharge Planning Discharge Home Pt Condition on Discharge: Good Discharge Disposition: Discharge Home Discharge Time: > 30 minutes Discharge Instructions DIET: Follow Instructions for: As Tolerated, No Restrictions Activities you can perform: Regular-No Restrictions Miguel Maya MD Jul 12, 2016 11:46
--- NOTE | 2016-07-15 08:41 | PD.OP ---
Operative Report Date of Surgery: Jul 11, 2016 Preoperative Diagnosis: L3 compression fracture Postoperative Diagnosis: L3 compression fracture Procedure: L3 kyphoplasty Anesthesia: general Surgeon: Mayito Dickinson Wood Bucker(s): [id number] Operation and Findings: INDICATIONS FOR THE PROCEDURE Mr allison is a 61 year-old male who presented with intractable pain related to a L3 compression fracture. He failed nonsurgical management and a kyphoplasty was indicated as the most appropriate form of treatment. The [id number] details of the procedure, indications, alternatives, risks and potential complications were fully discussed with the patient. The patient fully understood. All The questions were answered. No guarantees were given. The patient voiced requesting the procedure and provided informed consents. The patient was offered the alternative of delaying the procedure and continuing with nonsurgical management. DETAILS OF THE SURGICAL PROCEDURE The patient was brought to the operating room and after the induction of general anesthesia, endotracheal intubation was performed. A Bryant catheter and bilateral SAMANTHA hose and sequential compression devices were placed and kept throughout the procedure. The patient was positioned prone on the Colton table over gel rods. All pressure points were carefully padded with egg crate mattress. The eyes were tapped shut after ointment was applied by the anesthesiologist to prevent corneal abrasion. A Nikki hugger was placed over the exposed lower body to maintain control of the core body temperature. The lumbar region was prepped and draped in the usual sterile fashion. The C-arms were brought to the field and simultaneous AP and lateral x-rays were obtained. The levels were carefully counted and the pedicles were marked over the skin. An entry point was selected 1 centimeter superior and 1 centimeter lateral to the pedicle of L3. Two small incisions were outlined on the skin and infiltrated with 1% lidocaine with epinephrine in 1:100,000 dilution. Initially, two small skin incisions were made with a #11 blade. Then , Jamshidi needles were carefully advanced to the entrance of the pedicle, and then into the vertebral body under continuous fluoroscopic guidance. K-wires were placed inside the vertebral body of and the needles were carefully removed. A drill was used to create a trough into the vertebral body to insert a cannula. Once the cannula was located through the pedicle, the drill was removed and bilateral balloons were inserted into the L3 vertebral body for vertebral augmentation. A careful expansion of the balloon under continuous fluoroscopic guidance and manometric evaluation allowed expansion of the vertebral body. Then, the balloons were deflated and carefully removed and the voids created in the vertebral body were filled with bone cement under fluoroscopic visualization. A very good expansion of the vertebral bodies was achieved without evidence of extravasation or cement or other complications. The cannulas were then removed. The incisions were closed using a single stitch at each incision. Dermabond was applied to the skin. At the end of the procedure, the sponge, needle, instrument counts correct. The estimated blood loss as minimal. No intraoperative complications occurred. The patient received prophylactic antibiotics. The patient was then extubated and transferred to the recovery room in stable condition. Mayito Dickinson MD Jul 15, 2016 08:41
== END 2016-07-12 12:03 | disposition home or self-care (01) | DRG 517 ==
LOC: NEPC 09:23 → NEDA 12:19 → N05A 15:54
PROVIDERS: ADMIT Internal Medicine; ATTEND Internal Medicine
PROC: 0QS03ZZ Reposition Lumbar Vertebra, Percutaneous Approach (ICD-10-PCS; 2016-07-11)
PROC: 0QU03JZ Supplement Lumbar Vertebra with Synthetic Substitute, Percutaneous Approach (ICD-10-PCS; principal; 2016-07-11 12:19)
DX: S32.030A Wedge compression fracture of third lumbar vertebra, initial encounter for closed fracture (principal); W19.XXXA Unspecified fall, initial encounter; I10 Essential (primary) hypertension; J44.9 Chronic obstructive pulmonary disease, unspecified; F32.9 Major depressive disorder, single episode, unspecified; F43.10 Post-traumatic stress disorder, unspecified; F41.9 Anxiety disorder, unspecified; M54.5 Low back pain; F17.210 Nicotine dependence, cigarettes, uncomplicated; B19.20 Unspecified viral hepatitis C without hepatic coma; Z23 Encounter for immunization
CPT/HCPCS: 72100; 72131; 72148; 74177; 80048; 83735; 85025; 90686; 94150; 96374; 96375; J0131; J0690; J2270; J2405; J2710; J3010; J3370; J3480; J7030; J7050; J7120; L0627; Q2038; Q9967

== ENCOUNTER 2017-06-20 23:09 | Emergency (ER) | payer OTHER ==
[~2017-06-20] VITALS: Ht 182.9 cm; Wt 100.5 kg
[~2017-06-20 23:09] MED LIST changes: +ALPR.5 PO; -ALPR0.5T3 PO; +ATEN25TA PO; +GABA100C4 PO; +HYDR-3583 PO; +MULTTAB67 PO; -OXYC15TA PO; +PRAZ5CAP PO; -QUET100 PO; +QUET1TAB8 PO; -QUET50TA PO; -SUPETAB30 PO; +VENL37.5 PO
[2017-06-20 23:15] VITALS: BP 145/99; PULSE 68; RESP 17; TEMP 98.3; O2SAT 99
[2017-06-20] MEDS ORDERED: traMADol HCL 50 MG TAB PO ONE (23:30)
[2017-06-20] MEDS ORDERED: DIAZEPAM 10 MG TAB PO ONE (23:30)
[2017-06-20] MEDS ORDERED: IBUP-232 PO (23:36)
[2017-06-20] MEDS ORDERED: DEPA500T3 PO (23:36)
[2017-06-20] MEDS ORDERED: VENL100T PO (23:36)
[2017-06-20] MEDS ORDERED: OXYC30TA PO (23:36)
[2017-06-20] MEDS ORDERED: QUET400T PO (23:36)
[2017-06-20 23:37] LABS: BASOPHIL # 0.1 TH/MM3 (0-0.2); BASOPHIL % 1.1 % (0.0-2.0); EOSINOPHIL # 0.1 TH/MM3 (0-0.4); EOSINOPHIL % 1.4 % (0.0-4.0); HEMATOCRIT 39.3 % (39.0-51.0); HEMOGLOBIN 13.8 GM/DL (13.0-17.0); LYMPHOCYTE # 2.1 TH/MM3 (1.0-4.8); MEAN CELL VOLUME 88.5 FL (80.0-100.0); MEAN CORPUSCULAR HEMOGLOBIN 31.2 PG (27.0-34.0); MEAN CORPUSCULAR HGB CONC 35.2 % (32.0-36.0); MEAN PLATELET VOLUME 7.7 FL (7.0-11.0); MONO % 5.7 % (0.0-8.0); MONOCYTE # 0.3 TH/MM3 (0-0.9); NEUT % 53.8 % (16.0-70.0); PLATELET COUNT 180 TH/MM3 (150-450); RED BLOOD COUNT 4.44 MIL/MM3 (4.50-5.90); RED CELL DISTRIBUTION WIDTH 13.9 % (11.6-17.2); WHITE BLOOD COUNT 5.6 TH/MM3 (4.0-11.0)
[2017-06-20 23:54] LABS: ALBUMIN 3.8 GM/DL (3.4-5.0); ALT (GPT) 17 U/L (12-78); AST (GOT) 16 U/L (15-37); BICARBONATE 24.3 MEQ/L (21.0-32.0); BLOOD UREA NITROGEN 20 MG/DL (7-18); CALCIUM 8.7 MG/DL (8.5-10.1); CHLORIDE 108 MEQ/L (98-107); CREATININE 1.02 MG/DL (0.60-1.30); GLOMERULAR FILTRATION RATE 74 ML/MIN (>89); GLUCOSE,RANDOM 110 MG/DL (74-106); SODIUM (NA) 140 MEQ/L (136-145)
[2017-06-20 23:55] LABS: ALKALINE PHOSPHATASE 80 U/L (45-117); TOTAL BILIRUBIN ADULT 0.4 MG/DL (0.2-1.0); TOTAL PROTEIN 7.2 GM/DL (6.4-8.2)
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
[2017-06-21] MEDS ORDERED: IOHEXOL 350 MG/ML 10 ML VIAL (for RAD DIAG) IVCONTRAST ONE (01:05)
[2017-06-21 02:15] LABS: BILIRUBIN, URINE NEG (NEG); BLOOD, URINE NEG (NEG); GLUCOSE,URINE NEG (NEG); KETONE, URINE NEG (NEG); NITRITE,URINE NEG (NEG); PH, URINE 6.5 (5.0-8.5); URINE COLOR YELLOW (YELLW/STRAW); URINE LEUKOCYTE ESTERASE NEG (NEG)
[2017-06-21] MEDS ORDERED: CYCL10TA PO (02:37)
[2017-06-21] MEDS ORDERED: TRAM50 PO (02:37)
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
[2017-06-21 02:55] VITALS: BP 159/89; PULSE 55; RESP 16; O2SAT 100
== END 2017-06-21 03:28 | disposition home or self-care (01) ==
LOC: NEPE 23:09
DX: S00.03XA Contusion of scalp, initial encounter (principal); S00.81XA Abrasion of other part of head, initial encounter; I10 Essential (primary) hypertension; J44.9 Chronic obstructive pulmonary disease, unspecified; B19.20 Unspecified viral hepatitis C without hepatic coma; F41.9 Anxiety disorder, unspecified; F32.9 Major depressive disorder, single episode, unspecified; F17.210 Nicotine dependence, cigarettes, uncomplicated; Y04.2XXA Assault by strike against or bumped into by another person, initial encounter; Y92.039 Unspecified place in apartment as the place of occurrence of the external cause; Z79.899 Other long term (current) drug therapy
CPT/HCPCS: 70450; 72125; 74177; 80053; 81001; 85025; 99285; Q9967